=== PATIENT | male | born 1960 | race Caucasian/White ===

== ENCOUNTER → 2017-12-29 | Day surgery (SDC) | payer BC, OTHER ==
[2017-12-28 08:16] VITALS: BMI 26.6
[~2017-12-29] MED LIST: LACTATED RINGERS 1,000 ML IV SCH; LIDOCAINE 1% 20 ML VIAL (10MG/ML) FOR IV START INTRADERMA PRN; LIDOCAINE 1% INJ 10MG/ML (20 ML MDV) ONE; PROPOFOL 10 MG/ML 20 ML VIAL IV ONE
[2017-12-29 08:22] VITALS: RESP 16; TEMP 97.2
--- NOTE | 2017-12-29 09:18 | P.GSHP ---
History of Present Illness H&P Date: 12/29/17 Chief Complaint: Colon cancer screening Patient today for colonoscopy. He has not had one previously. No bowel complaints. No family history of colon cancer. Past Medical History Past Medical History: No Reported History History of Any Multi-Drug Resistant Organisms: None Reported Past Surgical History: Orthopedic Surgery Additional Past Surgical History / Comment(s): rt rotator cuff repair. tendon repair lt arm Past Anesthesia/Blood Transfusion Reactions: No Reported Reaction Smoking Status: Never smoker - Past Family History Mother Family Medical History: No Reported History Medications and Allergies Home Medications Medication Instructions Recorded Confirmed Type Ibuprofen [Motrin] 800 mg PO Q6HR PRN #30 tab 11/20/15 12/26/17 Rx Allergies Allergy/AdvReac Type Severity Reaction Status Date / Time No Known Allergies Allergy Verified 12/26/17 15:31 Surgical - Exam Vital Signs Temp Pulse Resp BP Pulse Ox 97.2 F L 52 L 16 136/77 96 12/29/17 08:17 12/29/17 08:17 12/29/17 08:17 12/29/17 08:17 12/29/17 08:17 Physical exam: General: Well-developed, well-nourished HEENT: Normocephalic, sclerae nonicteric Abdomen: Nontender, nondistended Extremities: No edema Neuro: Alert and oriented Assessment and Plan (1) Colon cancer screening Narrative/Plan: Will proceed with colonoscopy at this time Current Visit: Yes Status: Acute Code(s): Z12.11 - ENCOUNTER FOR SCREENING FOR MALIGNANT NEOPLASM OF COLON SNOMED Code(s): 987461479
--- NOTE | 2017-12-29 09:28 | P.PCN ---
Date of Procedure: 12/29/17 Procedure(s) Performed: PREOPERATIVE DIAGNOSIS: Colon cancer screening POSTOPERATIVE DIAGNOSIS: Diverticulosis PROCEDURE: Colonoscopy ANESTHESIA: MAC SURGEON: Mainor Cody M.D. SPECIMENS: None ENDOSCOPIC PROCEDURE: The patient was placed on the endoscopy table in the left decubitus position. The Olympus colonoscope was inserted into the anus and passed under direct visualization to the base of the cecum. The appendiceal orifice was visualized. From that point the scope was slowly withdrawn inspecting all surfaces carefully. There were no neoplastic inflammatory or polypoid lesions throughout the cecum, ascending, transverse, descending, sigmoid and rectum. There was mild diverticulosis noted in the left colon. Digital rectal examination was normal. The patient was taken to the recovery room in stable condition per anesthesia guidelines. RECOMMENDATIONS: Increase fiber. Follow colonoscopy 10 years
[2017-12-29 09:50] VITALS: BP 121/69; PULSE 57
== END ==
LOC: ORWHC2ENDO 07:51
PROVIDERS: ATTEND Surgery
DX: Z12.11 Encounter for screening for malignant neoplasm of colon (principal); K57.30 Diverticulosis of large intestine without perforation or abscess without bleeding
CPT/HCPCS: J2001; J2704; G0121

== ENCOUNTER → 2018-01-03 | Outpatient (CLI) | payer BC ==
[2018-01-03 09:32] LABS: Basophils % (A) 1 %; Eosinophils # (A) 0.3 k/uL (0-0.7); Eosinophils % (A) 5 %; HCT 43.3 % (39.0-53.0); HGB 14.4 gm/dL (13.0-17.5); Lymphocytes % (A) 32 %; MCHC 33.2 g/dL (31.0-37.0); MCV 90.4 fL (80.0-100.0); Mean Platelet Volume 7.1; Monocytes # (A) 0.5 k/uL (0-1.0); Monocytes % (A) 8 %; Neutrophils # (A) 3.2 k/uL (1.3-7.7); Neutrophils % (A) 50 %; Platelet Count 267 k/uL (150-450); RBC 4.79 m/uL (4.30-5.90); WBC 6.4 k/uL (3.8-10.6)
[2018-01-03 14:52] LABS: T4, Free (Free Thyroxine) 0.74 ng/dL (0.78-2.19)
[2018-01-03 15:06] LABS: Prostate Specific Antigen 1.04 ng/mL (0.00-4.00)
[2018-01-03 15:15] LABS: ALT 46 U/L (21-72); AST 36 U/L (17-59); Albumin 4.6 g/dL (3.5-5.0); Alkaline Phosphatase 67 U/L (38-126); Anion Gap 12 mmol/L; Blood Urea Nitrogen 21 mg/dL (9-20); Calcium 10.1 mg/dL (8.4-10.2); Carbon Dioxide 26 mmol/L (22-30); Chloride 104 mmol/L (98-107); Cholesterol 254 mg/dL (<200); Glucose 106 mg/dL (74-99); HDL Cholesterol 64 mg/dL (40-60); LDL Cholesterol,Calculated 172 mg/dL (0-99); Potassium 4.7 mmol/L (3.5-5.1); Sodium 142 mmol/L (137-145); Total Bilirubin 1.1 mg/dL (0.2-1.3); Total Protein 7.8 g/dL (6.3-8.2); Triglycerides 89 mg/dL (<150)
== END | disposition home or self-care (01) ==
LOC: LABWHC1 08:45
PROVIDERS: ATTEND Family Medicine
DX: Z00.00 Encounter for general adult medical examination without abnormal findings (principal); I10 Essential (primary) hypertension
CPT/HCPCS: 36415; 80053; 80061; 84153; 84439; 84443; 85025; 86803

== ENCOUNTER → 2018-02-05 | Outpatient (CLI) | payer OTHER ==
--- NOTE | 2018-02-05 14:58 | XR ---
EXAMINATION TYPE: XR hand complete RT DATE OF EXAM: 02/05/2018 CLINICAL HISTORY: pain TECHNIQUE: Frontal, lateral and oblique images of the right hand are obtained. COMPARISON: None. FINDINGS: There is no acute fracture/dislocation evident. The joint spaces appear within normal limi ts. The overlying soft tissue appears unremarkable. IMPRESSION: There is no acute fracture or dislocation ICD 10 NO FRACTURE, INITIAL EVALUATION
== END | disposition home or self-care (01) ==
LOC: RADXRMAIN 14:28
PROVIDERS: ATTEND Emergency Medicine
DX: S60.041A Contusion of right ring finger without damage to nail, initial encounter (principal); S60.221A Contusion of right hand, initial encounter

== ENCOUNTER → 2018-02-08 | Outpatient (CLI) | payer OTHER ==
--- NOTE | 2018-02-08 16:14 | XR ---
EXAMINATION TYPE: XR finger RT DATE OF EXAM: 02/08/2018 CLINICAL HISTORY: pain Right third digit. TECHNIQUE: 3 views of the right third digit are submitted. COMPARISON: None FINDINGS: No displaced fracture is seen with certainty. Joint spaces are well-preserved. Correlate for soft tissue injury. IMPRESSION: No acute displaced fracture or dislocation.
== END | disposition home or self-care (01) ==
LOC: RADXRMAIN 15:27
PROVIDERS: ATTEND Emergency Medicine
DX: S60.041D Contusion of right ring finger without damage to nail, subsequent encounter (principal)

== ENCOUNTER 2019-02-13 13:56 | Emergency (ER) | payer BC ==
[2019-02-13] MEDS ORDERED: DEXAMETHASONE SOD PHOSPHATE 10 MG/ML 1 ML VIAL IV STA (14:20)
[2019-02-13] MEDS ORDERED: LORazepam 2 MG/ML INJ IV STA (14:20)
[2019-02-13] MEDS ORDERED: MORPHINE SULFATE 4 MG/ML SYRINGE IVP STA (14:20)
[2019-02-13] MEDS ORDERED: ONDANSETRON 4 MG/2 ML VIAL IVP STA (14:20)
[2019-02-13] MEDS ORDERED: SODIUM CHLORIDE 0.9% 1,000 ML IV STA (14:20)
--- NOTE | 2019-02-13 14:44 | ED ---
Headache HPI - General Chief Complaint: Headache Stated Complaint: Headache, sent by Time Seen by Provider: 02/13/19 14:20 Source: RN notes reviewed, old records reviewed Mode of arrival: ambulatory Limitations: no limitations - History of Present Illness Initial Comments: This is a 58-year-old male the ER for evaluation. Patient sent ER for evaluat ion of severe headache. Patient has CT scan earlier in the day which he states showed tumor. Patient is having severe headache currently. Positive nausea no active vomiting. MD Complaint: headache -: days(s) Onset Description: gradual Location: temporal Severity: severe Severity scale (1-10): 8 Quality: aching, throbbing Consistency: constant Improves With: nothing Worsens With: none Associated Symptoms: nausea Treatments Prior to Arrival: none - Related Data Home Medications Medication Instructions Recorded Confirmed Lisinopril [Prinivil] 5 mg PO DAILY 02/13/19 02/13/19 Allergies Allergy/AdvReac Type Severity Reaction Status Date / Time No Known Allergies Allergy Verified 02/13/19 14:23 Review of Systems ROS Statement: Those systems with pertinent positive or pertinent negative responses have been documented in the HPI. ROS Other: All systems not noted in ROS Statement are negative. Past Medical History Past Medical History: No Reported History History of Any Multi-Drug Resistant Organisms: None Reported Past Surgical History: Orthopedic Surgery Additional Past Surgical History / Comment(s): rt rotator cuff repair. tendon repair lt arm Past Anesthesia/Blood Transfusion Reactions: No Reported Reaction Past Psychological History: Anxiety Smoking Status: Never smoker Past Alcohol Use History: None Reported Past Drug Use History: None Reported - Past Family History Mother Family Medical History: No Reported History General Exam Limitations: no limitations General appearance: alert, in no apparent distress Head exam: Present: atraumatic, normocephalic, normal inspection Eye exam: Present: normal appearance, PERRL, EOMI. Absent: scleral icterus, conjunctival injection, periorbital swelling ENT exam: Present: normal exam, mucous membranes moist Neck exam: Present: normal inspection. Absent: tenderness, meningismus, lymphadenopathy Respiratory exam: Present: normal lung sounds bilaterally. Absent: respiratory distress, wheezes, rales, rhonchi, stridor Cardiovascular Exam: Present: regular rate, normal rhythm, normal heart sounds. Absent: systolic murmur, diastolic murmur, rubs, gallop, clicks GI/Abdominal exam: Present: soft, normal bowel sounds. Absent: distended, tenderness, guarding, rebound, rigid Extremities exam: Present: normal inspection, full ROM, normal capillary refill. Absent: tenderness, pedal edema, joint swelling, calf tenderness Back exam: Present: normal inspection Neurological exam: Present: alert, oriented X3, CN II-XII intact Psychiatric exam: Present: normal affect, normal mood Skin exam: Present: warm, dry, intact, normal color. Absent: rash Course Vital Signs 02/13/19 14:06 Temperature 97.6 F Pulse Rate 58 L Respiratory 18 Rate Blood Pressure 171/84 O2 Sat by Pulse 97 Oximetry - Reevaluation(s) Reevaluation #1: 02/13/19 14:42 Medical records reviewed Reevaluation #2: 02/13/19 14:42 Patient's neurologist regarding symptoms, treatment plan Reevaluation #3: 02/13/19 14:43 Patient family informed of findings, plan from transfer for neurosurgical evaluation Medical Decision Making - Medical Decision Making 58-year-old male the ER for evaluation, patient is today for evaluation of brain tumor mass, patient has significant brain tumor with edema will be given steroids pain control and transferred for neurosurgical evaluation and treatment Disposition Clinical Impression: Brain tumor, Headache Disposition: OTHER INSTITUTION NOT DEFINED Condition: Critical Instructions (If sedation given, give patient instructions): Acute Headache (ED) Is patient prescribed a controlled substance at d/c from ED?: No Referrals: Chetan Abdi MD [Primary Care Provider] - 1-2 days - Out of Hospital Transfer - Req. Specs Out of Hospital Transfer - Requested Specifics: Other Emergency Center ([facility])
[2019-02-13 14:53] LABS: Basophils # (A) 0.1 k/uL (0-0.2); Basophils % (A) 1 %; Eosinophils # (A) 0.2 k/uL (0-0.7); Eosinophils % (A) 2 %; HCT 42.2 % (39.0-53.0); HGB 14.4 gm/dL (13.0-17.5); Lymphocytes # (A) 2.4 k/uL (1.0-4.8); Lymphocytes % (A) 26 %; MCH 30.3 pg (25.0-35.0); MCHC 34.2 g/dL (31.0-37.0); MCV 88.6 fL (80.0-100.0); Mean Platelet Volume 6.9; Monocytes # (A) 0.5 k/uL (0-1.0); Monocytes % (A) 5 %; Neutrophils # (A) 5.8 k/uL (1.3-7.7); Neutrophils % (A) 63 %; Platelet Count 318 k/uL (150-450); RBC 4.77 m/uL (4.30-5.90); RDW 14.3 % (11.5-15.5); WBC 9.3 k/uL (3.8-10.6)
[2019-02-13 14:59] LABS: ALT 53 U/L (21-72); AST 36 U/L (17-59); African American GFR (CKD) >90 (>60 ml/min/1.73 sqM); Albumin 4.8 g/dL (3.5-5.0); Alkaline Phosphatase 69 U/L (38-126); Anion Gap 11 mmol/L; Blood Urea Nitrogen 23 mg/dL (9-20); Carbon Dioxide 24 mmol/L (22-30); Chloride 103 mmol/L (98-107); Creatine Kinase 74 U/L (55-170); Glucose 113 mg/dL (74-99); Magnesium 1.9 mg/dL (1.6-2.3); Potassium 4.5 mmol/L (3.5-5.1); Sodium 138 mmol/L (137-145); Total Protein 8.2 g/dL (6.3-8.2)
[2019-02-13 15:06] LABS: INR 0.9 (<1.2); Partial Thromboplastin Time 24.6 sec (22.0-30.0); Prothrombin Time 9.7 sec (9.0-12.0)
[2019-02-13 15:37] LABS: Appearance,Urine Clear (Clear); Bilirubin,Urine Negative (Negative); Blood,Urine Negative (Negative); Color,Urine Light Yellow; Glucose,Urine (UA) Negative (Negative); Ketones,Urine Negative (Negative); Leukocyte Esterase,Urine Negative (Negative); Nitrite,Urine Negative (Negative); Protein,Urine Negative (Negative); Specific Gravity,Urine 1.013 (1.001-1.035); Urobilinogen,Urine <2.0 mg/dL (<2.0)
[2019-02-13 16:31] VITALS: RESP 16
[2019-02-13 17:58] VITALS: BP 127/72; PULSE 65; TEMP 98.5
== END 2019-02-13 18:27 | disposition other institution (70) ==
LOC: EC 13:56
DX: D49.6 Neoplasm of unspecified behavior of brain (principal); R51 Headache; Z79.899 Other long term (current) drug therapy
CPT/HCPCS: 99284 ×2; 96374 ×2; 96375 ×4; 96361 ×5; 36415; 93005; 80053; 82550; 83605; 83735; 84100; 84484; 85025; 85610; 85730; 81003; 70470; J2060; J2270; J1100; J2405; Q9967

== ENCOUNTER → 2019-02-13 | Outpatient (CLI) | payer BC ==
--- NOTE | 2019-02-13 08:06 | CT ---
EXAMINATION TYPE: CT brain wo/w con DATE OF EXAM: 02/13/2019 COMPARISON: None HISTORY: Headache, confusion, weakness CT DLP: 1963.4mGycm CONTRAST: CT scan of the head is performed without and with IV Contrast, patient injected with 100 mL of Isovue 300. Unenhanced followed by contrast enhanced CT of the brain is submitted for evaluation. Peripheral enhancing mass is noted in the right frontal lobe which measures 5.1 x 4.6 x 5.1 cm. There is an adjacent mass noted within the high right frontal lobe which measures 2.3 x 1.9 cm. There is e xtensive surrounding of vasogenic edema. There is right to left shift of approximately 5.6 mm. There is impending subfalcine herniation. No additional lesions are noted. Bony calvarium is intact. IMPRESSION: 1. 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 Metastatic disease is not excluded. 2. Surrounding vasogenic edema with right to left shift of 5.6 mm and impending subfalcine herniation . A [place] level critical message alert has been initiated for Chetan bAdi MD via the [employer] Critical Results System on 02/13/2019 8:04 AM. This message alert has been sent to Chetan Abdi MD via the preferences provided by the clinician for the receipt of Radiology Critical Findings. [employer] age ID [id number].
== END | disposition home or self-care (01) ==
LOC: RADCTMAIN 06:54
PROVIDERS: ATTEND Family Medicine
DX: G93.9 Disorder of brain, unspecified (principal); R41.82 Altered mental status, unspecified; I10 Essential (primary) hypertension
CPT/HCPCS: 70470; Q9967

== ENCOUNTER 2019-03-22 08:55 | Inpatient (IN) | payer BC ==
[2019-03-22] MEDS: MORPHINE SULFATE 2 MG/ML SYRINGE IVP PRN ×3 (12:54→21:00)
[2019-03-22 14:05] LABS: Basophils # (A) 0.2 k/uL (0-0.2); Basophils % (A) 1 %; Eosinophils % (A) 0 %; HCT 43.1 % (39.0-53.0); HGB 14.4 gm/dL (13.0-17.5); Lymphocytes # (A) 1.5 k/uL (1.0-4.8); Lymphocytes % (A) 8 %; MCHC 33.4 g/dL (31.0-37.0); MCV 89.9 fL (80.0-100.0); Mean Platelet Volume 6.7; Monocytes # (A) 0.7 k/uL (0-1.0); Monocytes % (A) 3 %; Neutrophils # (A) 17.8 k/uL (1.3-7.7); Neutrophils % (A) 86 %; Platelet Count 301 k/uL (150-450); RBC 4.79 m/uL (4.30-5.90); RDW 12.7 % (11.5-15.5); WBC 20.7 k/uL (3.8-10.6)
[2019-03-22 14:15] LABS: ALT 94 U/L (21-72); AST 32 U/L (17-59); African American GFR (CKD) >90 (>60 ml/min/1.73 sqM); Albumin 3.9 g/dL (3.5-5.0); Alkaline Phosphatase 122 U/L (38-126); Anion Gap 14 mmol/L; Blood Urea Nitrogen 23 mg/dL (9-20); Calcium 9.4 mg/dL (8.4-10.2); Carbon Dioxide 21 mmol/L (22-30); Chloride 95 mmol/L (98-107); Glucose 389 mg/dL (74-99); Potassium 4.3 mmol/L (3.5-5.1); Sodium 130 mmol/L (137-145); Total Protein 7.1 g/dL (6.3-8.2)
[2019-03-22] MEDS: DEXAMETHASONE 4 MG TAB PO SCH ×2 (16:14→21:00)
[2019-03-22] MEDS ORDERED: LIDOCAINE VISCOUS 2% 15 ML CUP MUCOUS MEM ONE (17:45)
[2019-03-22 18:09] LABS: Glucose,Whole Blood 282 mg/dL (75-99)
--- NOTE | 2019-03-22 18:57 | P.HPIM ---
History of Present Illness H&P Date: 03/22/19 Chief Complaint: Oral herpes zoster This is 59-year-old male known to the practice who presented via direct admit at our request for oral herpes zoster secondary to immune compromised state from high-dose steroids. Patient underwent craniotomy 1 month ago today for a excis ion of a glioblastoma. Surgery apparently went well the patient was on long- term tapering dose of high-dose steroids and developed oral herpes zoster secondary to immune compromised state his current meds were steroids medication for hypertension patient has sick complains of significant pain to his mouth and the side of the face otherwise appears to be doing fairly well the goal at this time is to aggressively treat the shingles so that patient can be discharged from [facility] Constitutional: Reports as per HPI (Mouth and lip pain specifically on the right side secondary to herpes zoster as a result of high-dose steroid treatment postoperatively for glioblastoma 1 month ago) Ears, nose, mouth and throat: Reports as per HPI (Oral herpes zoster secondary to high-dose steroids, patient underwent craniotomy for large glioblastoma 1 mo nth ago today) Cardiovascular: Reports as per HPI Respiratory: Reports as per HPI Gastrointestinal: Reports as per HPI Genitourinary: Reports as per HPI Musculoskeletal: Reports as per HPI Integumentary: Reports as per HPI Neurological: Reports as per HPI Past Medical History Past Medical History: Cancer, GERD/Reflux, Hypertension Additional Past Medical History / Comment(s): Recent brain surgery for glioblastoma and has gait dysfunction since surgery, herpes simplex one, constipation. History of Any Multi-Drug Resistant Organisms: None Reported Past Surgical History: Orthopedic Surgery Additional Past Surgical History / Comment(s): 02/19/19 craniotomy with brain tumor resection, rt rotator cuff repair, tendon repair lt arm, colonoscopy. Past Anesthesia/Blood Transfusion Reactions: No Reported Reaction Smoking Status: Never smoker - Past Family History Mother Family Medical History: No Reported History Additional Family Medical History / Comment(s): Father is healthy Medications and Allergies Home Medications Medication Instructions Recorded Confirmed Type Lisinopril [Prinivil] 5 mg PO DAILY 02/13/19 03/22/19 History Acetaminophen-Codeine 300-30mg 1 - 2 tab PO Q4H PRN 03/22/19 03/22/19 History [Tylenol w/codeine #3] Dexamethasone 4 mg PO TID 03/22/19 03/22/19 History Omeprazole 20 mg PO DAILY 03/22/19 03/22/19 History levETIRAcetam 500 mg PO BID 03/22/19 03/22/19 History valACYclovir HCL [Valacyclovir] 1,000 mg PO BID 03/22/19 03/22/19 History Allergies Allergy/AdvReac Type Severity Reaction Status Date / Time No Known Allergies Allergy Verified 03/22/19 11:18 Physical Exam Osteopathic Statement: *. No significant issues noted on an osteopathic structural exam other than those noted in the History and Physical/Consult. Vitals: Vital Signs Temp Pulse Resp BP BP Pulse Ox 03/22/19 11:59 97.9 F 61 15 135/69 96 03/22/19 10:11 97.8 F 79 17 178/95 96 Intake and Output 03/22/19 03/22/19 03/22/19 06:59 14:59 22:59 Intake Total 600 Balance 600 Intake: Oral 600 Other: # Voids 1 Weight 73.573 kg General: [Patient awake, alert and oriented times 3. Patient in no acute distress.] Craniotomy scar nicely healed HEENT: [PERRL. EOMI. No pharyngeal erythema or exudate.] Patient has herpes zoster on primarily the right side of the mouth with extensive shingles in the oral cavity Neck: [No adenopathy.] Cardiac: [Heart regular in rate and rhythm. No S3. No S4. No clicks, rubs. No murmur.] Lungs: [Clear to auscultation bilaterally.] Abdomen: [No mass. No organomegaly. Bowel sounds presnt and normoactive in all 4 quadrants.] Extremes: [No edema no cyanosis no claudication normal pulses] : [] Musculoskeletal: [No joint erythema, edema or tenderness.] Skin: [No rash.] Neurologic: [No lateralizing deficits. CN II - XII grossly intact.] Lymphatic: [No adenopathy.] Results CBC & Chem 7: 03/22/19 13:12 03/22/19 13:11 Labs: Abnormal Lab Results - Last 24 Hours (Table) 03/22/19 03/22/19 03/22/19 Range/Units 13:11 13:12 18:07 WBC 20.7 H (3.8-10.6) k/uL Neutrophils # 17.8 H (1.3-7.7) k/uL Sodium 130 L (137-145) mmol/L Chloride 95 L (98-107) mmol/L Carbon Dioxide 21 L (22-30) mmol/L BUN 23 H (9-20) mg/dL Creatinine 0.45 L (0.66-1.25) mg/dL Glucose 389 H (74-99) mg/dL POC Glucose (mg/dL) 282 H (75-99) mg/dL ALT 94 H (21-72) U/L Thrombosis Risk Factor Assmnt - Choose All That Apply Any of the Below Risk Factors Present?: Yes Other Risk Factors: Yes Each Risk Factor Represents 2 Points: Age 61-74 years, Malignancy Other congenital or acquired thrombophilia - If yes, enter type in comment: No Thrombosis Risk Factor Assessment Total Risk Factor Score: 4 Thrombosis Risk Factor Assessment Level: Moderate Risk Assessment and Plan (1) Glioblastoma Current Visit: Yes Status: Acute Code(s): C71.9 - MALIGNANT NEOPLASM OF BRAIN, UNSPECIFIED SNOMED Code(s): 86543278018953 (2) Herpes zoster Current Visit: Yes Status: Acute Code(s): B02.9 - ZOSTER WITHOUT COMPLICATIONS SNOMED Code(s): 4415066 Plan: Patient had craniotomy 1 month ago for glioblastoma High-dose steroids status post craniotomy 1 month Significant herpes zoster currently being treated by Valtrex with little or no improvement Will start IV acyclovir to aggressively treat the oral herpes zoster Also will start patient on "magic mouthwash" to treat oral pain Goal is to have patient be able to eat painlessly by Monday in order for patient to attend first chemotherapy treatments at [facility] Monday morning Time with Patient: Greater than 30
[2019-03-22] MEDS: SODIUM CHLORIDE 0.9% IVPB SCH (19:40)
[2019-03-22] MEDS: ACYCLOVIR SODIUM IVPB SCH (19:40)
[2019-03-22 20:10] LABS: Glucose,Whole Blood 353 mg/dL (75-99)
[2019-03-22] MEDS: levETIRAcetam 500 MG TAB PO SCH (20:59)
[2019-03-22] MEDS ORDERED: INSULIN ASPART (NovoLOG) 100 UNIT/ML VIAL SQ SCH (21:00)
[2019-03-22] MEDS ORDERED: valACYclovir HCL 1,000 MG TABLET PO SCH (21:00)
[2019-03-22] MEDS: INSULIN ASPART (NovoLOG) 100 UNIT/ML VIAL SQ SCH (21:24)
[2019-03-22] MEDS: LISINOPRIL 5 MG TAB PO SCH (21:26)
[2019-03-23] MEDS: MORPHINE SULFATE 2 MG/ML SYRINGE IVP PRN ×2 (04:09→11:01)
[2019-03-23] MEDS: MAG HYDROX/AL HYDROX/SIMETH 30 ML, LIDOCAINE VISCOUS 30 ML, diphenhydrAMINE ELIXIR 75 M... PO PRN ×4 (05:26)
[2019-03-23] MEDS: Acetaminophen-Codeine 300-30mg TAB PO PRN (05:26)
[2019-03-23 06:53] LABS: Glucose,Whole Blood 287 mg/dL (75-99)
[2019-03-23] MEDS: INSULIN ASPART (NovoLOG) 100 UNIT/ML VIAL SQ SCH ×4 (08:01→20:30)
[2019-03-23] MEDS: SODIUM CHLORIDE 0.9% IVPB SCH (08:02)
[2019-03-23] MEDS: LISINOPRIL 5 MG TAB PO SCH (08:02)
[2019-03-23] MEDS: levETIRAcetam 500 MG TAB PO SCH ×2 (08:02→20:30)
[2019-03-23] MEDS: ACYCLOVIR SODIUM IVPB SCH (08:02)
[2019-03-23] MEDS: PANTOPRAZOLE 40 MG TABLET PO SCH (08:02)
[2019-03-23] MEDS: DEXAMETHASONE 4 MG TAB PO SCH ×3 (08:02→22:13)
[2019-03-23] MEDS ORDERED: LISINOPRIL 5 MG TAB PO SCH (09:00)
--- NOTE | 2019-03-23 11:12 | P.PN ---
Subjective Progress Note Date: 03/23/19 Principal diagnosis: Status post craniotomy for glioblastoma 1 month ago, significant herpes zoster involving patient's lips and oral cavity Objectively patient's outer lesions are looking less insidious less erythematous swelling appears to have gone down some since yesterday. Most importantly patient has been eating anything and everything deleon sausage anything, the oral soreness has all but resolved Objective - Vital Signs Vital signs: Vital Signs Temp 98.1 F 03/23/19 04:28 Pulse 60 03/23/19 04:28 Resp 16 03/23/19 04:28 BP 146/76 03/23/19 04:28 Pulse Ox 96 03/23/19 04:28 Intake & Output 03/22/19 03/23/19 03/23/19 18:59 06:59 18:59 Intake Total 600 450 Balance 600 450 Weight 73.573 kg Intake: Intake, IV Titration 100 Amount Acyclovir Sodium 350 mg 100 In Sodium Chloride 0.9% 100 ml @ 100 mls/hr IVPB Q8HR [facility] Rx#:[id number] Oral 600 350 Other: Voiding Method Toilet Toilet Urinal Urinal # Voids 1 1 - Exam General: [Patient awake, alert and oriented times 3. Patient in no acute distress.] Fresh healed craniotomy scar HEENT: [PERRL. EOMI. No pharyngeal erythema or exudate.] Preoperative exudative oral lesions around the left upper and lower lip the oral cavity is less erythematous and less painful today Neck: [No adenopathy.] Cardiac: [Heart regular in rate and rhythm. No S3. No S4. No clicks, rubs. No murmur.] Lungs: [Clear to auscultation bilaterally.] Abdomen: [No mass. No organomegaly. Bowel sounds presnt and normoactive in all 4 quadrants.] Extremes: [No edema no cyanosis no claudication normal pulses] : [] Musculoskeletal: [No joint erythema, edema or tenderness.] Skin: [No rash.] Neurologic: [No lateralizing deficits. CN II - XII grossly intact.] Lymphatic: [No adenopathy.] - Labs CBC & Chem 7: 03/22/19 13:12 03/22/19 13:11 Labs: Abnormal Lab Results - Last 24 Hours (Table) 09/03/22/19 03/22/19 Range/Units 13:11 13:12 18:07 WBC 20.7 H (3.8-10.6) k/uL Neutrophils # 17.8 H (1.3-7.7) k/uL Sodium 130 L (137-145) mmol/L Chloride 95 L (98-107) mmol/L Carbon Dioxide 21 L (22-30) mmol/L BUN 23 H (9-20) mg/dL Creatinine 0.45 L (0.66-1.25) mg/dL Glucose 389 H (74-99) mg/dL POC Glucose (mg/dL) 282 H (75-99) mg/dL ALT 94 H (21-72) U/L 03/22/19 03/23/19 Range/Units 20:08 06:52 WBC (3.8-10.6) k/uL Neutrophils # (1.3-7.7) k/uL Sodium (137-145) mmol/L Chloride (98-107) mmol/L Carbon Dioxide (22-30) mmol/L BUN (9-20) mg/dL Creatinine (0.66-1.25) mg/dL Glucose (74-99) mg/dL POC Glucose (mg/dL) 353 H 287 H (75-99) mg/dL ALT (21-72) U/L Assessment and Plan (1) Glioblastoma Current Visit: Yes Status: Acute Code(s): C71.9 - MALIGNANT NEOPLASM OF BRAIN, UNSPECIFIED SNOMED Code(s): 48929182961256 (2) Herpes zoster Current Visit: Yes Status: Acute Code(s): B02.9 - ZOSTER WITHOUT COMPLICATIONS SNOMED Code(s): 9943768 Plan: Patient had craniotomy 1 month ago for glioblastoma High-dose steroids status, post craniotomy 1 month Significant herpes zoster periorally primarily on the right side of the upper lip and some on the lower lip on the right side This has improved with first dose of acyclovir IV, patient is able to eat today things like deleon and sausage the oral cavity is much less painful Will continue IV acyclovir to aggressively treat the oral herpes zoster Also will start patient on "magic mouthwash" to treat oral pain Patient also getting Magic cups high calorie cold ice creamlike oral supplement Goal is to have patient be able to eat painlessly by Monday in order for patient to attend first chemotherapy treatments at [facility] Monday morning Time with Patient: Greater than 30
[2019-03-23 11:19] LABS: Basophils # (A) 0.2 k/uL (0-0.2); Basophils % (A) 1 %; Eosinophils % (A) 0 %; HCT 38.9 % (39.0-53.0); HGB 13.2 gm/dL (13.0-17.5); Lymphocytes # (A) 1.3 k/uL (1.0-4.8); Lymphocytes % (A) 8 %; MCH 30.2 pg (25.0-35.0); MCHC 33.8 g/dL (31.0-37.0); MCV 89.2 fL (80.0-100.0); Mean Platelet Volume 6.5; Monocytes # (A) 0.7 k/uL (0-1.0); Monocytes % (A) 4 %; Neutrophils # (A) 14.5 k/uL (1.3-7.7); Neutrophils % (A) 86 %; Platelet Count 246 k/uL (150-450); RBC 4.36 m/uL (4.30-5.90); RDW 12.7 % (11.5-15.5); WBC 16.9 k/uL (3.8-10.6)
[2019-03-23 11:27] LABS: ALT 76 U/L (21-72); AST 31 U/L (17-59); African American GFR (CKD) >90 (>60 ml/min/1.73 sqM); Albumin 3.3 g/dL (3.5-5.0); Alkaline Phosphatase 101 U/L (38-126); Anion Gap 9 mmol/L; Blood Urea Nitrogen 18 mg/dL (9-20); Carbon Dioxide 27 mmol/L (22-30); Chloride 96 mmol/L (98-107); Glucose 277 mg/dL (74-99); Potassium 4.3 mmol/L (3.5-5.1); Sodium 132 mmol/L (137-145); Total Bilirubin 0.8 mg/dL (0.2-1.3); Total Protein 6.1 g/dL (6.3-8.2)
[2019-03-23 11:37] LABS: Glucose,Whole Blood 253 mg/dL (75-99)
[2019-03-23 12:56] VITALS: BMI 23.9
[2019-03-23] MEDS: ACYCLOVIR SODIUM 750 MG in SODIUM CHLORIDE 0.9% 250 ML IVPB SCH (16:21)
[2019-03-23 17:11] LABS: Glucose,Whole Blood 358 mg/dL (75-99)
[2019-03-23] MEDS: AMPICILLIN-SULBACTAM 3 GM in SODIUM CHLORIDE 0.9% 100 ML IVPB SCH ×2 (17:25→23:12)
[2019-03-23 20:11] LABS: Glucose,Whole Blood 355 mg/dL (75-99)
[2019-03-23] MEDS: MORPHINE SULFATE 4 MG/ML SYRINGE IVP PRN (20:29)
--- NOTE | 2019-03-23 23:59 | P.CONS ---
History of Present Illness - Reason for Consult Consult date: 03/23/19 extensive herpetic infection of mouth Requesting physician: Levon Espinoza Jr - Chief Complaint painful sores on lips and mouths x 1 week - History of Present Illness Patient is a 59-year-old male with recent diagnosis of glioblastoma multiforme he the patient is status post crainotomy and resection of the tumor and has been on high-dose steroids patient recently developed about a week ago sores on his lips and the mouth that has progressively got worse patient did have burning pain associated with those lesion with intensity almost 7-8 out of 10 no radiation with sores in the mouth and difficulty swallowing denies any fever patient said he was started on oral Valtrex few days ago he is not sure about the dose however did not have any improvement subsequently the patient has been admitted directly to the hospital for extensive herpetic infection of his mouth patient patient was started on IV acyclovir and infectious disease was consulted for further recommendation regarding antiviral and antibiotic therapy, patient is currently afebrile however he did have elevated white count Review of Systems CONSTITUTIONAL: Positive for weakness. denies Fever EYES: No complaint. ENT as per HPI RESPIRATORY: No complaint. CARDIOVASCULAR: No complaint. GENITOURINARY: No complaint. GASTROINTESTINAL: No complaint. MUSCULOSKELETAL: No complaint. INTEGUMENTARY: No complaint. PSYCHOLOGICAL: No complaint. ENDOCRINE: No complaint. NEUROLOGIC: No complaint. Past Medical History Past Medical History: Cancer, GERD/Reflux, Hypertension Additional Past Medical History / Comment(s): Recent brain surgery for glioblastoma and has gait dysfunction since surgery, herpes simplex one, constipation. History of Any Multi-Drug Resistant Organisms: None Reported Past Surgical History: Orthopedic Surgery Additional Past Surgical History / Comment(s): 02/19/19 craniotomy with brain tumor resection, rt rotator cuff repair, tendon repair lt arm, colonoscopy. Past Anesthesia/Blood Transfusion Reactions: No Reported Reaction Smoking Status: Never smoker - Past Family History Mother Family Medical History: No Reported History Additional Family Medical History / Comment(s): Father is healthy Medications and Allergies Home Medications Medication Instructions Recorded Confirmed Type Lisinopril [Prinivil] 5 mg PO DAILY 02/13/19 03/22/19 History Acetaminophen-Codeine 300-30mg 1 - 2 tab PO Q4H PRN 03/22/19 03/22/19 History [Tylenol w/codeine #3] Dexamethasone 4 mg PO TID 03/22/19 03/22/19 History Omeprazole 20 mg PO DAILY 03/22/19 03/22/19 History levETIRAcetam 500 mg PO BID 03/22/19 03/22/19 History valACYclovir HCL [Valacyclovir] 1,000 mg PO BID 03/22/19 03/22/19 History Allergies Allergy/AdvReac Type Severity Reaction Status Date / Time No Known Allergies Allergy Verified 03/22/19 11:18 Physical Exam Vitals: Vital Signs Temp Pulse Resp BP Pulse Ox 03/23/19 11:47 98.0 F 58 L 18 133/78 97 03/23/19 04:28 98.1 F 60 16 146/76 96 03/23/19 00:00 58 L 18 03/22/19 22:17 140/88 03/22/19 21:00 98.2 F 55 L 16 174/96 94 L Intake and Output 03/22/19 03/23/19 03/23/19 22:59 06:59 14:59 Intake Total 450 Balance 450 Intake: Intake, IV Titration 100 Amount Acyclovir Sodium 350 mg 100 In Sodium Chloride 0.9% 100 ml @ 100 mls/hr IVPB Q8HR [facility] Rx#:[id number] Oral 350 Other: Voiding Method Toilet Toilet Urinal Urinal # Voids 1 1 GENERAL DESCRIPTION: Middle-aged male lying in bed, no distress. No tachypnea or accessory muscle of respiration use. HEENT: Shows Pallor , no scleral icterus , extensive herpetic lesions to the right side of mouth , upper and lower lips No pharyngeal erythema or thrush NECK: Trachea central, no thyromegaly. LUNGS: Unlabored breathing. Clear to auscultation anteriorly. No wheeze or crackle. HEART: S1, S2, regular rate and rhythm. No loud murmur ABDOMEN: Soft, no tenderness , guarding or rigidity, no organomegaly EXTREMITIES: No edema of feet. SKIN: No rash, no masses palpable. NEUROLOGICAL: The patient is awake, alert, oriented x3, mood and affect normal. Results CBC & Chem 7: 03/23/19 10:46 03/23/19 10:46 Labs: Abnormal Lab Results - Last 24 Hours (Table) 03/22/19 03/22/19 03/22/19 Range/Units 13:11 13:12 18:07 WBC 20.7 H (3.8-10.6) k/uL Hct (39.0-53.0) % Neutrophils # 17.8 H (1.3-7.7) k/uL Sodium 130 L (137-145) mmol/L Chloride 95 L (98-107) mmol/L Carbon Dioxide 21 L (22-30) mmol/L BUN 23 H (9-20) mg/dL Creatinine 0.45 L (0.66-1.25) mg/dL Glucose 389 H (74-99) mg/dL POC Glucose (mg/dL) 282 H (75-99) mg/dL ALT 94 H (21-72) U/L Total Protein (6.3-8.2) g/dL Albumin (3.5-5.0) g/dL 03/22/19 03/23/19 03/23/19 Range/Units 20:08 06:52 10:46 WBC 16.9 H (3.8-10.6) k/uL Hct 38.9 L (39.0-53.0) % Neutrophils # 14.5 H (1.3-7.7) k/uL Sodium (137-145) mmol/L Chloride (98-107) mmol/L Carbon Dioxide (22-30) mmol/L BUN (9-20) mg/dL Creatinine (0.66-1.25) mg/dL Glucose (74-99) mg/dL POC Glucose (mg/dL) 353 H 287 H (75-99) mg/dL ALT (21-72) U/L Total Protein (6.3-8.2) g/dL Albumin (3.5-5.0) g/dL 03/23/19 03/23/19 Range/Units 10:46 11:35 WBC (3.8-10.6) k/uL Hct (39.0-53.0) % Neutrophils # (1.3-7.7) k/uL Sodium 132 L (137-145) mmol/L Chloride 96 L (98-107) mmol/L Carbon Dioxide (22-30) mmol/L BUN (9-20) mg/dL Creatinine 0.42 L (0.66-1.25) mg/dL Glucose 277 H (74-99) mg/dL POC Glucose (mg/dL) 253 H (75-99) mg/dL ALT 76 H (21-72) U/L Total Protein 6.1 L (6.3-8.2) g/dL Albumin 3.3 L (3.5-5.0) g/dL Assessment and Plan Assessment: 1-Patient with extensive herpes labialis with concern for possible secondary cellulitis in this patient who did have extensive swelling of the right side of his face besides an antiviral will need to treat the patient with IV antibiotics to cover for the oral ya. 2-patient with recent diagnosis of glioblastoma multiforme and exposure of high-dose steroids/immunocompromise state Plan: 1-acyclovir 10 mg/kg every 8 hours dose has been adjusted up to 750 mg every 8 hour while monitoring his kidney function closely 2-Unasyn 3 g every 6 hours We will follow on clinical condition and cultures to further adjust medication if needed Thank you for this consultation we will follow the patient along with you
[2019-03-24] MEDS: ACYCLOVIR SODIUM 750 MG in SODIUM CHLORIDE 0.9% 250 ML IVPB SCH ×3 (00:22→16:35)
[2019-03-24] MEDS: MORPHINE SULFATE 4 MG/ML SYRINGE IVP PRN (01:48)
[2019-03-24] MEDS: AMPICILLIN-SULBACTAM 3 GM in SODIUM CHLORIDE 0.9% 100 ML IVPB SCH ×3 (05:48→18:18)
[2019-03-24 06:48] LABS: Glucose,Whole Blood 296 mg/dL (75-99)
[2019-03-24 08:06] LABS: Basophils # (A) 0.1 k/uL (0-0.2); Basophils % (A) 1 %; Eosinophils % (A) 0 %; HCT 37.2 % (39.0-53.0); HGB 13.2 gm/dL (13.0-17.5); Lymphocytes # (A) 1.5 k/uL (1.0-4.8); Lymphocytes % (A) 11 %; MCH 30.4 pg (25.0-35.0); MCHC 35.4 g/dL (31.0-37.0); MCV 86.1 fL (80.0-100.0); Mean Platelet Volume 5.3; Monocytes # (A) 0.6 k/uL (0-1.0); Monocytes % (A) 5 %; Neutrophils # (A) 10.7 k/uL (1.3-7.7); Neutrophils % (A) 81 %; Platelet Count 262 k/uL (150-450); RBC 4.32 m/uL (4.30-5.90); RDW 12.6 % (11.5-15.5); WBC 13.2 k/uL (3.8-10.6)
[2019-03-24] MEDS: MORPHINE SULFATE 2 MG/ML SYRINGE IVP PRN (08:35)
[2019-03-24] MEDS: LISINOPRIL 5 MG TAB PO SCH (08:35)
[2019-03-24] MEDS: PANTOPRAZOLE 40 MG TABLET PO SCH (08:35)
[2019-03-24] MEDS: levETIRAcetam 500 MG TAB PO SCH ×2 (08:35→21:17)
[2019-03-24] MEDS: DEXAMETHASONE 4 MG TAB PO SCH ×3 (08:35→21:17)
[2019-03-24] MEDS: INSULIN ASPART (NovoLOG) 100 UNIT/ML VIAL SQ SCH ×4 (08:36→21:18)
--- NOTE | 2019-03-24 09:04 | P.PN ---
Subjective Progress Note Date: 03/24/19 Principal diagnosis: Status post craniotomy for glioblastoma 1 month ago, significant herpes zoster involving patient's lips and oral cavity Objectively patient's outer lesions are looking less insidious less erythematous swelling appears to have gone down some since yesterday. Most importantly patient has been eating anything and everything deleon sausage anything, the oral soreness has all but resolved 03/24/2019 Patient is definitely tolerating diet mild cellulitis along with oral herpetic lesions starting to clear drying up patient significantly improved will continue IV acyclovir and IV antibiotics at least through tomorrow reevaluate at which time consider discharging patient home Objective - Vital Signs Vital signs: Vital Signs Temp 97.6 F 03/24/19 05:00 Pulse 47 L 03/24/19 05:00 Resp 19 03/24/19 05:00 BP 124/79 03/24/19 05:00 Pulse Ox 98 03/24/19 05:00 Intake & Output 03/23/19 03/24/19 03/24/19 18:59 06:59 18:59 Intake Total 100 350 Balance 100 350 Weight 73.573 kg Intake: Intake, IV Titration 100 350 Amount Acyclovir Sodium 350 mg 100 In Sodium Chloride 0.9% 100 ml @ 100 mls/hr IVPB Q8HR [facility] Rx#:[id number] Acyclovir Sodium 750 mg 250 In Sodium Chloride 0.9% 250 ml @ 265 mls/hr IVPB Q8HR [facility] Rx#:[id number] Ampicillin-Sulbactam 3 gm 100 In Sodium Chloride 0.9% 100 ml @ 200 mls/hr IVPB Q6HR [facility] Rx#:[id number] Other: Voiding Method Toilet Toilet Urinal Urinal # Voids 1 - Exam General: [Patient awake, alert and oriented times 3. Patient in no acute distress.] Fresh healed craniotomy scar HEENT: [PERRL. EOMI. No pharyngeal erythema or exudate.] Preoperative exudative oral lesions around the left upper and lower lip the oral cavity is less erythematous and less painful today Neck: [No adenopathy.] Cardiac: [Heart regular in rate and rhythm. No S3. No S4. No clicks, rubs. No murmur.] Lungs: [Clear to auscultation bilaterally.] Abdomen: [No mass. No organomegaly. Bowel sounds presnt and normoactive in all 4 quadrants.] Extremes: [No edema no cyanosis no claudication normal pulses] : [] Musculoskeletal: [No joint erythema, edema or tenderness.] Skin: [No rash.] Neurologic: [No lateralizing deficits. CN II - XII grossly intact.] Lymphatic: [No adenopathy.] - Labs CBC & Chem 7: 03/24/19 07:31 03/23/19 10:46 Labs: Abnormal Lab Results - Last 24 Hours (Table) 03/23/19 03/23/19 03/23/19 Range/Units 10:46 10:46 11:35 WBC 16.9 H (3.8-10.6) k/uL Hct 38.9 L (39.0-53.0) % Neutrophils # 14.5 H (1.3-7.7) k/uL Sodium 132 L (137-145) mmol/L Chloride 96 L (98-107) mmol/L Creatinine 0.42 L (0.66-1.25) mg/dL Glucose 277 H (74-99) mg/dL POC Glucose (mg/dL) 253 H (75-99) mg/dL ALT 76 H (21-72) U/L Total Protein 6.1 L (6.3-8.2) g/dL Albumin 3.3 L (3.5-5.0) g/dL 03/23/19 03/23/19 03/24/19 Range/Units 17:09 20:10 06:45 WBC (3.8-10.6) k/uL Hct (39.0-53.0) % Neutrophils # (1.3-7.7) k/uL Sodium (137-145) mmol/L Chloride (98-107) mmol/L Creatinine (0.66-1.25) mg/dL Glucose (74-99) mg/dL POC Glucose (mg/dL) 358 H 355 H 296 H (75-99) mg/dL ALT (21-72) U/L Total Protein (6.3-8.2) g/dL Albumin (3.5-5.0) g/dL 03/24/19 Range/Units 07:31 WBC 13.2 H (3.8-10.6) k/uL Hct 37.2 L (39.0-53.0) % Neutrophils # 10.7 H (1.3-7.7) k/uL Sodium (137-145) mmol/L Chloride (98-107) mmol/L Creatinine (0.66-1.25) mg/dL Glucose (74-99) mg/dL POC Glucose (mg/dL) (75-99) mg/dL ALT (21-72) U/L Total Protein (6.3-8.2) g/dL Albumin (3.5-5.0) g/dL Assessment and Plan (1) Glioblastoma Current Visit: Yes Status: Acute Code(s): C71.9 - MALIGNANT NEOPLASM OF BRAIN, UNSPECIFIED SNOMED Code(s): 77441759874176 (2) Herpes zoster Current Visit: Yes Status: Acute Code(s): B02.9 - ZOSTER WITHOUT COMPLICATIONS SNOMED Code(s): 8242794 Plan: Patient had craniotomy 1 month ago for glioblastoma High-dose steroids status, post craniotomy 1 month Significant herpes zoster periorally primarily on the right side of the upper lip and some on the lower lip on the right side This has improved with first dose of acyclovir IV, patient is able to eat today things like deleon and sausage the oral cavity is much less painful Will continue IV acyclovir to aggressively treat the oral herpes zoster Also will start patient on "magic mouthwash" to treat oral pain Patient also getting Magic cups high calorie cold ice creamlike oral supplement ID also started IV Unasyn to empirically cover secondary bacterial infection around the perioral area significant reduction in white count noted We'll reevaluate and assess in the morning and consider discharging patient so he might keep his appointment Goal is to have patient be able to eat painlessly by Monday in order for patient to attend first chemotherapy treatments at [facility] Monday morning Time with Patient: Greater than 30
[2019-03-24 11:32] LABS: Glucose,Whole Blood 254 mg/dL (75-99)
[2019-03-24] MEDS: MAG HYDROX/AL HYDROX/SIMETH 30 ML, LIDOCAINE VISCOUS 30 ML, diphenhydrAMINE ELIXIR 75 M... PO PRN ×4 (12:12)
[2019-03-24] MEDS: Acetaminophen-Codeine 300-30mg TAB PO PRN (15:10)
[2019-03-24 17:05] LABS: Glucose,Whole Blood 304 mg/dL (75-99)
[2019-03-24 20:06] LABS: Glucose,Whole Blood 344 mg/dL (75-99)
[2019-03-24] MEDS ORDERED: MELATONIN 3 MG TABLET PO PRN (20:06)
[2019-03-25] MEDS: AMPICILLIN-SULBACTAM 3 GM in SODIUM CHLORIDE 0.9% 100 ML IVPB SCH ×3 (00:13→11:40)
[2019-03-25] MEDS: ACYCLOVIR SODIUM 750 MG in SODIUM CHLORIDE 0.9% 250 ML IVPB SCH ×3 (00:46→15:11)
[2019-03-25] MEDS: LISINOPRIL 5 MG TAB PO SCH (06:01)
[2019-03-25 07:03] LABS: Glucose,Whole Blood 384 mg/dL (75-99)
[2019-03-25] MEDS: INSULIN ASPART (NovoLOG) 100 UNIT/ML VIAL SQ SCH ×2 (07:17→12:27)
--- NOTE | 2019-03-25 07:18 | PN ---
PROGRESS NOTE DATE OF SERVICE: 03/24/2019 REASON FOR FOLLOW UP: Herpes labialis and question of secondary cellulitis. INTERVAL HISTORY: The patient is currently afebrile. Patient is feeling slightly better today. Swelling and redness of the right side of the angle of the mouth is slightly decreased. Denies any chest pain, shortness of breath or cough. No nausea, no vomiting. No abdominal pain. No diarrhea. PHYSICAL EXAMINATION: Blood pressure is 137/80 with a pulse of 51, temperature 98.5. He is 97% on room air. General description is a middle-aged male up in the bed in no distress. HEENT: Examination right side of the angle of the mouth swelling and lesion has slightly decreased in intensity. LUNGS: Unlabored breathing, decreased breath sounds at the base. HEART: S1, S2. Regular rate and rhythm. ABDOMEN: Soft, no tenderness. LABS: White count is down to 13.2. DIAGNOSTIC IMPRESSION AND PLAN: Patient with extensive herpes labilais with a question of possible secondary bacteria cellulitis. Currently covered with IV Acyclovir and Unasyn to continue for at least another 24 hours before transitioning him to oral. Monitor his clinical course closely. Continue supportive care. MMODL / IJN: [id number] /
[2019-03-25] MEDS: levETIRAcetam 500 MG TAB PO SCH (07:59)
[2019-03-25] MEDS: PANTOPRAZOLE 40 MG TABLET PO SCH (07:59)
[2019-03-25] MEDS: DEXAMETHASONE 4 MG TAB PO SCH ×2 (07:59→15:11)
[2019-03-25] MEDS: MAG HYDROX/AL HYDROX/SIMETH 30 ML, LIDOCAINE VISCOUS 30 ML, diphenhydrAMINE ELIXIR 75 M... PO PRN ×8 (08:54→16:42)
[2019-03-25 11:37] LABS: Glucose,Whole Blood 263 mg/dL (75-99)
[2019-03-25 11:52] VITALS: BP 128/75; PULSE 58; RESP 17; TEMP 96.9
[2019-03-25] MEDS: MORPHINE SULFATE 4 MG/ML SYRINGE IVP PRN (12:26)
--- NOTE | 2019-03-25 14:30 | PN ---
PROGRESS NOTE DATE OF SERVICE: 03/25/2019 REASON FOR FOLLOWUP: Extensive hypoesthesia with possible secondary cellulitis. INTERVAL HISTORY: The patient is currently afebrile. Patient also has improved. He is able to swallow and has been insisting on going home. No chest pain, shortness of breath, no abdominal pain, no diarrhea. PHYSICAL EXAMINATION: Blood pressure 120/75 with a pulse of 50, temperature of 96.8, he is 97% on room air. General description is a middle-aged male up in the room in no distress. HEENT: Examination right side of the wound is slightly decreased. Swelling has slightly decreased, no drainage. LUNGS: Unlabored breathing, clear to auscultation anteriorly. HEART: S1, S2. Regular rate and rhythm. ABDOMEN: Soft, no tenderness. LABS: No new labs have been obtained today. DIAGNOSTIC IMPRESSION AND PLAN: Diagnostic impression plan patient with extensive herpes labialis in this patient with possible secondary cellulitis. Plan is to switch him over to oral Valtrex 1 g 3 times a day along with oral Augmentin for about 7-10 days with close outpatient followup. Prescription has been sent to the pharmacy. MMODL / IJN: [id number] /
--- NOTE | 2019-03-25 16:50 | P.DS ---
Providers Date of admission: 03/22/19 09:56 Expected date of discharge: 03/25/19 Attending physician: Levon Espinoza Consults: 03/22/19 17:22 Consult Physician Routine Consulting Provider: Jordan Reinoso Consult Reason/Comments: glioblastoma/hsv Do you want consulting provider notified?: Already Contacted 03/23/19 10:36 Consult Physician Routine Consulting Provider: Hector Gutierrez Consult Reason/Comments: Oral herpes zoster, secondary to steroid use, glioblastoma Do you want consulting provider notified?: Yes 03/24/19 09:22 Consult Physician Routine Consulting Provider: Adolfo Fernandez Consult Reason/Comments: Glioblastoma Do you want consulting provider notified?: Yes Primary care physician: Levon Espinoza - Discharge Diagnosis(es) (1) Herpes zoster Current Visit: Yes Status: Acute (2) Intractable pain Current Visit: Yes Status: Acute (3) H/O craniotomy Current Visit: Yes Status: Acute (4) Chemotherapy adverse reaction Current Visit: Yes Status: Acute (5) H/O head and neck radiation Current Visit: Yes Status: Acute (6) Glioblastoma Current Visit: Yes Status: Acute Hospital Course: This is a pleasant 59-year-old white male well-known to my partner. He was diagnosed glioblastoma 1 month ago. He underwent a craniotomy for excision of tumor. He presented here on March 23 for significant pain and edema and erythema to his right Rd border. He was diagnosed with a severe case of herpes labialis. This placed on IV antibiotic, IV acyclovir. This pain was very difficult to control he was admitted for these treatments. After several days his symptoms were much better under control. Infectious disease is seen him and which him to orals, and he was cleared for discharge. Plan - Discharge Summary Discharge Rx Participant: No New Discharge Prescriptions: New Amoxicillin/Potassium Clav [Augmentin 875-125 Tablet] 1 tab PO Q12HR #20 tab valACYclovir HCL [Valtrex] 1,000 mg PO Q8HR #30 tab Melatonin 3 mg PO HS PRN tablet PRN Reason: Insomnia Nystatin 100,000 Unit/ml Susp [Mycostatin Oral Susp] 1,000,000 unit PO TID #42 cup Lisinopril [Zestril] 5 mg PO DAILY #90 tab Continue Acetaminophen-Codeine 300-30mg [Tylenol w/codeine #3] 1 - 2 tab PO Q4H PRN PRN Reason: Pain levETIRAcetam 500 mg PO BID Dexamethasone 4 mg PO TID Omeprazole 20 mg PO DAILY Discontinued Lisinopril [Prinivil] 5 mg PO DAILY valACYclovir HCL [Valacyclovir] 1,000 mg PO BID Discharge Medication List Acetaminophen-Codeine 300-30mg [Tylenol w/codeine #3] 1 - 2 tab PO Q4H PRN 03/22/19 [History] Dexamethasone 4 mg PO TID 03/22/19 [History] Omeprazole 20 mg PO DAILY 03/22/19 [History] levETIRAcetam 500 mg PO BID 03/22/19 [History] Amoxicillin/Potassium Clav [Augmentin 875-125 Tablet] 1 tab PO Q12HR #20 tab 03/25/19 [Rx] Lisinopril [Zestril] 5 mg PO DAILY #90 tab 03/25/19 [Rx] Melatonin 3 mg PO HS PRN tablet 03/25/19 [Rx] Nystatin 100,000 Unit/ml Susp [Mycostatin Oral Susp] 1,000,000 unit PO TID #42 cup 03/25/19 [Rx] valACYclovir HCL [Valtrex] 1,000 mg PO Q8HR #30 tab 03/25/19 [Rx] Follow up Appointment(s)/Referral(s): [facility], [NON-STAFF] - Hector Gutierrez MD [STAFF PHYSICIAN] - 1 Week Levon Espinoza Jr, DO [Primary Care Provider] - 1 Week Patient Instructions/Handouts: Amoxicillin/Clavulanate Potassium (By mouth), Valacyclovir (By mouth), Shingles (DC), Glioblastoma (DC) Activity/Diet/Wound Care/Special Instructions: call Renata in am to advise hold on treatments until MD clears you to start treatments again Discharge Disposition: HOME SELF-CARE
--- NOTE | 2019-03-25 23:29 | P.CONS ---
History of Present Illness - Reason for Consult Consult date: 03/25/19 shingles, glioblastoma multiforme - History of Present Illness Mr Dawkins is a 59 yr old white male, quite healthy and active at baseline. The patient had presented with about a 3 week history of left upper extremity weakness and is slowly progressive. In addition he was having difficulty with confusion at work and problems with following instructions and logistics. He also developed generalized headache. He was therefore referred for CT scan by systemic a physician which revealed a large right frontal mass with surrounding vasogenic edema and midline shift. He was sent in to the emergency room at [facility] and then transferred to [facility] on 02/14/19. He had an MRI of the brain revealing a 4.7 x 4.7 x 5.9 cm frontal enhancing mass with significant edema and [address] chest abdomen and pelvis were negative. The patient then had surgery on 02/19/19. Operative notes were reviewed and it appears from them that a gross total resection was achieved. Final pathology was consistent with glioblastoma multiforme . MRI showed cavitary changes in the right frontal lobe with mixed-signal focus measuring 4.6 x 3.6 cm. At the time of surgery the patient was also noted to have a cystic component of his tumor with pathology on the fluid that was drained also positive. The patient was seen by radiation oncology, and referred for further evaluation and recommendations.he was seen in the office on 03/01/19 and concurrent chemoradiatn for protocol withas recommended He has had some improvement a left upper extremity strength since surgery. Confusion and cognition are also improved. The patient was seen in the office last week as he had developed some mouth sores. He was treated for mucositis, but developed progressive symptoms. Lesions subsequently involved the right upper lip, and in the right side of the face and scalp. He had some blistering and crusting, along with generalized redness. Due to the above, causing increasing pain, he came into the emergency room. He was diagnosed with shingles and admitted. He was seen by ID and felt to have a superimposed bacterial cellulitis. He was therefore treated with both IV antibiotics and antiviral, with slow improvement in symptoms Consult was therefore placed for further evaluation and recommendations Review of Systems Constitutional: Reports fatigue, Reports weakness Eyes: denies blurred vision, denies pain Ears: deny: decreased hearing, ear discharge, earache, tinnitus Ears, nose, mouth and throat: Reports as per HPI, Reports mouth pain Cardiovascular: Reports decreased exercise tolerance Respiratory: Reports dyspnea Gastrointestinal: Denies abdominal pain, Denies diarrhea, Denies nausea, Denies vomiting Genitourinary: Reports as per HPI Musculoskeletal: Reports as per HPI, Reports muscle weakness Integumentary: Reports as per HPI, Reports lesions, Reports rash Neurological: Reports as per HPI, Reports change in mentation, Reports change in speech, Reports motor disturbance, Reports weakness Psychiatric: Denies anxiety, Denies depression Endocrine: Reports fatigue Hematologic/Lymphatic: Reports as per HPI Past Medical History Past Medical History: Cancer, GERD/Reflux, Hypertension Additional Past Medical History / Comment(s): Recent brain surgery for glioblastoma and has gait dysfunction since surgery, herpes simplex one, constipation. History of Any Multi-Drug Resistant Organisms: None Reported Past Surgical History: Orthopedic Surgery Additional Past Surgical History / Comment(s): 02/19/19 craniotomy with brain tumor resection, rt rotator cuff repair, tendon repair lt arm, colonoscopy. Past Anesthesia/Blood Transfusion Reactions: No Reported Reaction Smoking Status: Never smoker - Past Family History Mother Family Medical History: No Reported History Additional Family Medical History / Comment(s): Father is healthy Medications and Allergies Home Medications Medication Instructions Recorded Confirmed Type Acetaminophen-Codeine 300-30mg 1 - 2 tab PO Q4H PRN 03/22/19 03/22/19 History [Tylenol w/codeine #3] Dexamethasone 4 mg PO TID 03/22/19 03/22/19 History Omeprazole 20 mg PO DAILY 03/22/19 03/22/19 History levETIRAcetam 500 mg PO BID 03/22/19 03/22/19 History Amoxicillin/Potassium Clav 1 tab PO Q12HR #20 tab 03/25/19 Rx [Augmentin 875-125 Tablet] Lisinopril [Zestril] 5 mg PO DAILY #90 tab 03/25/19 Rx Melatonin 3 mg PO HS PRN tablet 03/25/19 Rx Nystatin 100,000 Unit/ml Susp 1,000,000 unit PO TID #42 cup 03/25/19 Rx [Mycostatin Oral Susp] valACYclovir HCL [Valtrex] 1,000 mg PO Q8HR #30 tab 03/25/19 Rx Allergies Allergy/AdvReac Type Severity Reaction Status Date / Time No Known Allergies Allergy Verified 03/22/19 11:18 Physical Exam Vitals: Vital Signs Temp Pulse Resp BP Pulse Ox 03/25/19 16:00 58 L 17 03/25/19 11:51 96.9 F L 58 L 17 128/75 97 03/25/19 04:59 97.9 F 96 16 172/98 96 Intake and Output 03/25/19 03/25/19 03/26/19 14:59 22:59 06:59 Intake Total 1400 Balance 1400 Intake: Intake, IV Titration 250 Amount Acyclovir Sodium 750 mg 250 In Sodium Chloride 0.9% 250 ml @ 265 mls/hr IVPB Q8HR [facility] Rx#:[id number] Oral 1150 Other: Voiding Method Toilet Toilet Urinal Urinal # Voids 4 4 - Constitutional General appearance: no acute distress - EENT Crusted lesions with erythema and swelling involving right upper lip at the mucocutaneous junction and extending into the mouth. Eyes: EOMI, PERRLA ENT: hearing grossly normal - Neck Neck: no lymphadenopathy Thyroid: bilateral: normal size - Respiratory Respiratory: bilateral: CTA - Cardiovascular Rhythm: regular Heart sounds: normal: S1, S2 - Gastrointestinal General gastrointestinal: normal bowel sounds, soft - Integumentary extensive erythema involving the right side of face, with papules, warmth and tenderness. No active ulcers, pustules, or crusted lesions external face Integumentary: rash (involving right side of face and ing into the oral cavity.) - Neurologic Neurologic: CNII-XII intact, focal deficits (left upper extremity mildly weak) - Musculoskeletal Musculoskeletal: generalized weakness, left sided weakness - Psychiatric Psychiatric: A&O x's 3, appropriate affect Results CBC & Chem 7: 03/24/19 07:31 03/23/19 10:46 Labs: Abnormal Lab Results - Last 24 Hours (Table) 03/25/19 03/25/19 Range/Units 07:01 11:36 POC Glucose (mg/dL) 384 H 263 H (75-99) mg/dL Assessment and Plan (1) Herpes zoster Narrative/Plan: This is a new occurrence. This is likely due to immunocompromise state from regular steroid use. There is concern also for superimposed bacterial edith lulitis. The patient has been treated with IV antiviral and Unasyn, with improvement Therefore to the admitting service and ID for continued treatment Status: Acute Code(s): B02.9 - ZOSTER WITHOUT COMPLICATIONS SNOMED Code(s): 2350729 (2) Glioblastoma Narrative/Plan: Diagnostic and therapeutic circumstances as described. The patient is to start concurrent chemoradiation per protocol. However chemotherapy will currently need to be held, until his current condition has been adequately treated. He was therefore obtain clearance from ID prior to starting chemotherapy, as otherwise it could compromise immunity further and cause relapse/dissemination of shingles. As chemoradiation have to be given concurrently, his treatment will be on hold until acute condition is felt to have resolved sufficiently. radiation oncology will be informed Status: Acute Code(s): C71.9 - MALIGNANT NEOPLASM OF BRAIN, UNSPECIFIED SNOMED Code(s): 41286574653401
== END 2019-03-25 17:10 | disposition home health service (06) | DRG 158 ==
LOC: 3NMEDONC 09:56
PROVIDERS: ADMIT Family Medicine; ATTEND Family Medicine
DX: B00.2 Herpesviral gingivostomatitis and pharyngotonsillitis (principal); C71.9 Malignant neoplasm of brain, unspecified; L03.211 Cellulitis of face; D81.89 Other combined immunodeficiencies; I10 Essential (primary) hypertension; K21.9 Gastro-esophageal reflux disease without esophagitis; B96.89 Other specified bacterial agents as the cause of diseases classified elsewhere; R26.9 Unspecified abnormalities of gait and mobility; Z79.899 Other long term (current) drug therapy; Z79.52 Long term (current) use of systemic steroids
CPT/HCPCS: 80053; 85025

== ENCOUNTER 2019-04-07 17:07 | Inpatient (IN) | payer BC ==
[2019-04-07 17:12] LABS: Glucose,Whole Blood >600 mg/dL (75-99)
[2019-04-07] MEDS ORDERED: SODIUM CHLORIDE 0.9% 500 ML 500 ML IV STA (17:26)
[2019-04-07] MEDS ORDERED: INSULIN REGULAR BOLUS (FROM DRIP BAG) IV ONE (17:26)
[2019-04-07] MEDS ORDERED: SODIUM CHLORIDE 0.9% 1,000 ML IV ONE (17:26)
[2019-04-07] MEDS ORDERED: INSULIN REGULAR 100 UNIT in SODIUM CHLORIDE 0.9% 100 ML IV SCH (17:30)
--- NOTE | 2019-04-07 17:37 | ED ---
General Adult HPI - General Chief complaint: Weakness Stated complaint: Hyperglycemia Time Seen by Provider: 04/07/19 17:07 Source: patient, family, EMS, RN notes reviewed Mode of arrival: EMS Limitations: altered mental status - History of Present Illness Initial comments: Patient is a pleasant 59-year-old male presenting to the emergency department wi th fatigue and generalized weakness. Symptoms started a couple of days ago. Majority of history is from and EMS. Patient does have known brain tumor with surgical excision done around 6 weeks ago. They're considering radiation and chemotherapy. The past few days patient has been fatigued and generally weak and slight confusion. Patient has polyuria and polydipsia. Patient has had some problems with recent hospital admission with blood sugars however otherwise no diagnosis of diabetes. Patient is on Decadron secondary to brain tumor. estimates patient has lost a proximal he 45 pounds over the past few months. No abdominal pain. No vomiting. - Related Data Home Medications Medication Instructions Recorded Confirmed Dexamethasone 4 mg PO TID@0100,0900,1700 03/22/19 04/07/19 levETIRAcetam 500 mg PO BID@0900,2100 03/22/19 04/07/19 Fluconazole [Diflucan] 100 mg PO DAILY@1200 04/07/19 04/07/19 Lisinopril [Zestril] 5 mg PO DAILY@1200 04/07/19 04/07/19 Allergies Allergy/AdvReac Type Severity Reaction Status Date / Time No Known Allergies Allergy Verified 04/07/19 18:02 Review of Systems ROS Statement: Those systems with pertinent positive or pertinent negative responses have been documented in the HPI. ROS Other: All systems not noted in ROS Statement are negative. Constitutional: Denies: fever Eyes: Denies: eye pain ENT: Denies: ear pain Respiratory: Denies: cough Cardiovascular: Denies: chest pain Endocrine: Reports: fatigue, polydipsia, polyuria Gastrointestinal: Denies: abdominal pain, nausea, vomiting Genitourinary: Denies: dysuria Musculoskeletal: Denies: back pain Skin: Reports: rash (Right side of face from recent shingles improving) Neurological: Reports: confusion. Denies: headache, weakness Past Medical History Past Medical History: Cancer, GERD/Reflux, Hypertension Additional Past Medical History / Comment(s): Recent brain surgery for glioblastoma and has gait dysfunction since surgery, herpes simplex one, constipation. History of Any Multi-Drug Resistant Organisms: None Reported Past Surgical History: Orthopedic Surgery Additional Past Surgical History / Comment(s): 02/19/19 craniotomy with brain tumor resection, rt rotator cuff repair, tendon repair lt arm, colonoscopy. Past Anesthesia/Blood Transfusion Reactions: No Reported Reaction Past Psychological History: Anxiety, Depression Smoking Status: Never smoker Past Alcohol Use History: None Reported Past Drug Use History: None Reported - Past Family History Mother Family Medical History: No Reported History Additional Family Medical History / Comment(s): Father is healthy General Exam Limitations: altered mental status General appearance: alert, in no apparent distress Head exam: Present: other (Anterior parietal incision clean and dry and intact) Eye exam: Present: normal appearance, PERRL ENT exam: Present: mucous membranes dry Neck exam: Present: normal inspection Respiratory exam: Present: normal lung sounds bilaterally Cardiovascular Exam: Present: regular rate, normal rhythm GI/Abdominal exam: Present: soft. Absent: tenderness Extremities exam: Present: normal inspection Neurological exam: Present: alert. Absent: motor sensory deficit Expanded Patient oriented to: Present: person, place. Absent: time Speech: Present: fluid speech Cranial nerves: EOM's Intact: Normal Motor strength exam: RUE: 5, LUE: 5, RLE: 5, LLE: 5 Psychiatric exam: Present: normal affect, normal mood Skin exam: Present: other (Mild erythema right side of mouth/face consistent with healing shingles is reported.) Course Vital Signs 04/07/19 04/07/19 04/07/19 17:11 17:33 18:46 Temperature 98.2 F Pulse Rate 109 H 90 96 Respiratory 16 18 18 Rate Blood Pressure 130/102 146/99 134/107 O2 Sat by Pulse 94 L 96 97 Oximetry - Reevaluation(s) Reevaluation #1: 04/07/19 18:31 Patient reevaluated and resting comfortably in bed. Patient and family updated on results and plan. Case discussed in detail with Dr. Parry, covering for Dr. Thomas who will consult. Dr. Abdi has been paged for admission of this patient. 04/07/19 19:15 Case was discussed in detail with Dr. Vick, who will admit and is earlier this patient. He does recommend oral acyclovir 400 mg maintenance dose. EKG Findings - EKG Comments: EKG Findings:: Normal sinus rhythm 92. [place] 146. QRS 84. QT 352. QTC 435. Normal axis. Left atrial enlargement. Normal QRS. No acute ST change. Medical Decision Making - Lab Data Result diagrams: 04/07/19 17:30 04/07/19 17:30 Lab Results 04/07/19 04/07/19 04/07/19 Range/Units 17:10 17:30 17:30 WBC 18.1 H (3.8-10.6) k/uL RBC 4.96 (4.30-5.90) m/uL Hgb 15.4 (13.0-17.5) gm/dL Hct 45.7 (39.0-53.0) % MCV 92.1 D (80.0-100.0) fL MCH 31.0 (25.0-35.0) pg MCHC 33.6 (31.0-37.0) g/dL RDW 13.6 (11.5-15.5) % Plt Count 342 (150-450) k/uL Neutrophils % 81 % Lymphocytes % 9 % Monocytes % 6 % Eosinophils % 0 % Basophils % 2 % Neutrophils # 14.7 H (1.3-7.7) k/uL Lymphocytes # 1.6 (1.0-4.8) k/uL Monocytes # 1.1 H (0-1.0) k/uL Eosinophils # 0.0 (0-0.7) k/uL Basophils # 0.3 H (0-0.2) k/uL Sodium 129 L (137-145) mmol/L Potassium 5.5 H (3.5-5.1) mmol/L Chloride 92 L (98-107) mmol/L Carbon Dioxide 21 L (22-30) mmol/L Anion Gap 16 mmol/L BUN 36 H (9-20) mg/dL Creatinine 0.45 L (0.66-1.25) mg/dL Est GFR (CKD-EPI)AfAm >90 (>60 ml/min/1.73 sqM) Est GFR (CKD-EPI)NonAf >90 (>60 ml/min/1.73 sqM) Glucose 957 H* (74-99) mg/dL POC Glucose (mg/dL) >600 H (75-99) mg/dL POC Glu Tube Sizer Operator ID Tawny Bowden Calcium 10.7 H (8.4-10.2) mg/dL Total Bilirubin 1.2 (0.2-1.3) mg/dL AST 28 (17-59) U/L ALT 115 H (21-72) U/L Alkaline Phosphatase 114 (38-126) U/L Total Protein 7.3 (6.3-8.2) g/dL Albumin 4.3 (3.5-5.0) g/dL Urine Color Urine Appearance (Clear) Urine pH (5.0-8.0) Ur Specific [place] (1.001-1.035) Urine Protein (Negative) Urine Glucose (UA) (Negative) Urine Ketones (Negative) Urine Blood (Negative) Urine Nitrite (Negative) Urine Bilirubin (Negative) Urine Urobilinogen (<2.0) mg/dL Ur Leukocyte Esterase (Negative) Acetone, Qual (Negative) 04/07/19 04/07/19 04/07/19 Range/Units 17:30 17:30 18:11 WBC (3.8-10.6) k/uL RBC (4.30-5.90) m/uL Hgb (13.0-17.5) gm/dL Hct (39.0-53.0) % MCV (80.0-100.0) fL MCH (25.0-35.0) pg MCHC (31.0-37.0) g/dL RDW (11.5-15.5) % Plt Count (150-450) k/uL Neutrophils % % Lymphocytes % % Monocytes % % Eosinophils % % Basophils % % Neutrophils # (1.3-7.7) k/uL Lymphocytes # (1.0-4.8) k/uL Monocytes # (0-1.0) k/uL Eosinophils # (0-0.7) k/uL Basophils # (0-0.2) k/uL Sodium (137-145) mmol/L Potassium (3.5-5.1) mmol/L Chloride (98-107) mmol/L Carbon Dioxide (22-30) mmol/L Anion Gap mmol/L BUN (9-20) mg/dL Creatinine (0.66-1.25) mg/dL Est GFR (CKD-EPI)AfAm (>60 ml/min/1.73 sqM) Est GFR (CKD-EPI)NonAf (>60 ml/min/1.73 sqM) Glucose (74-99) mg/dL POC Glucose (mg/dL) >600 H (75-99) mg/dL POC Glu Tube Sizer Operator ID Morena Gonzalez Calcium (8.4-10.2) mg/dL Total Bilirubin (0.2-1.3) mg/dL AST (17-59) U/L ALT (21-72) U/L Alkaline Phosphatase (38-126) U/L Total Protein (6.3-8.2) g/dL Albumin (3.5-5.0) g/dL Urine Color Light Yellow Urine Appearance Clear (Clear) Urine pH 5.5 (5.0-8.0) Ur Specific [place] 1.033 (1.001-1.035) Urine Protein Trace H (Negative) Urine Glucose (UA) 4+ H (Negative) Urine Ketones Negative (Negative) Urine Blood Negative (Negative) Urine Nitrite Negative (Negative) Urine Bilirubin Negative (Negative) Urine Urobilinogen <2.0 (<2.0) mg/dL Ur Leukocyte Esterase Negative (Negative) Acetone, Qual Positive (Negative) 04/07/19 Range/Units 18:48 WBC (3.8-10.6) k/uL RBC (4.30-5.90) m/uL Hgb (13.0-17.5) gm/dL Hct (39.0-53.0) % MCV (80.0-100.0) fL MCH (25.0-35.0) pg MCHC (31.0-37.0) g/dL RDW (11.5-15.5) % Plt Count (150-450) k/uL Neutrophils % % Lymphocytes % % Monocytes % % Eosinophils % % Basophils % % Neutrophils # (1.3-7.7) k/uL Lymphocytes # (1.0-4.8) k/uL Monocytes # (0-1.0) k/uL Eosinophils # (0-0.7) k/uL Basophils # (0-0.2) k/uL Sodium (137-145) mmol/L Potassium (3.5-5.1) mmol/L Chloride (98-107) mmol/L Carbon Dioxide (22-30) mmol/L Anion Gap mmol/L BUN (9-20) mg/dL Creatinine (0.66-1.25) mg/dL Est GFR (CKD-EPI)AfAm (>60 ml/min/1.73 sqM) Est GFR (CKD-EPI)NonAf (>60 ml/min/1.73 sqM) Glucose (74-99) mg/dL POC Glucose (mg/dL) >600 H (75-99) mg/dL POC Glu Tube Sizer Operator ID Morena Gonzalez Calcium (8.4-10.2) mg/dL Total Bilirubin (0.2-1.3) mg/dL AST (17-59) U/L ALT (21-72) U/L Alkaline Phosphatase (38-126) U/L Total Protein (6.3-8.2) g/dL Albumin (3.5-5.0) g/dL Urine Color Urine Appearance (Clear) Urine pH (5.0-8.0) Ur Specific [place] (1.001-1.035) Urine Protein (Negative) Urine Glucose (UA) (Negative) Urine Ketones (Negative) Urine Blood (Negative) Urine Nitrite (Negative) Urine Bilirubin (Negative) Urine Urobilinogen (<2.0) mg/dL Ur Leukocyte Esterase (Negative) Acetone, Qual (Negative) - Radiology Data Radiology results: image reviewed (Chest x-ray shows no acute process) Critical Care Time Critical Care Time: Yes Total Critical Care Time: 32 Disposition Clinical Impression: Diabetic ketoacidosis Disposition: ADMITTED IP TO THIS HOSP Is patient prescribed a controlled substance at d/c from ED?: No Referrals: Chetan Abdi MD [Primary Care Provider] - 1-2 days Decision Time: 18:32
[2019-04-07 17:39] LABS: Appearance,Urine Clear (Clear); Bilirubin,Urine Negative (Negative); Blood,Urine Negative (Negative); Color,Urine Light Yellow; Glucose,Urine (UA) 4+ (Negative); Ketones,Urine Negative (Negative); Leukocyte Esterase,Urine Negative (Negative); Nitrite,Urine Negative (Negative); PH, Urine 5.5 (5.0-8.0); Protein,Urine Trace (Negative); Specific Gravity,Urine 1.033 (1.001-1.035); Urobilinogen,Urine <2.0 mg/dL (<2.0)
[2019-04-07 17:41] LABS: Basophils # (A) 0.3 k/uL (0-0.2); Basophils % (A) 2 %; Eosinophils % (A) 0 %; HCT 45.7 % (39.0-53.0); HGB 15.4 gm/dL (13.0-17.5); Lymphocytes # (A) 1.6 k/uL (1.0-4.8); Lymphocytes % (A) 9 %; MCHC 33.6 g/dL (31.0-37.0); Monocytes # (A) 1.1 k/uL (0-1.0); Monocytes % (A) 6 %; Neutrophils # (A) 14.7 k/uL (1.3-7.7); Neutrophils % (A) 81 %; Platelet Count 342 k/uL (150-450); RBC 4.96 m/uL (4.30-5.90); RDW 13.6 % (11.5-15.5); WBC 18.1 k/uL (3.8-10.6)
[2019-04-07 17:42] LABS: MCV 92.1 fL (80.0-100.0)
[2019-04-07 17:48] LABS: ALT 115 U/L (21-72); AST 28 U/L (17-59); African American GFR (CKD) >90 (>60 ml/min/1.73 sqM); Albumin 4.3 g/dL (3.5-5.0); Alkaline Phosphatase 114 U/L (38-126); Anion Gap 16 mmol/L; Blood Urea Nitrogen 36 mg/dL (9-20); Calcium 10.7 mg/dL (8.4-10.2); Carbon Dioxide 21 mmol/L (22-30); Chloride 92 mmol/L (98-107); Potassium 5.5 mmol/L (3.5-5.1); Sodium 129 mmol/L (137-145); Total Bilirubin 1.2 mg/dL (0.2-1.3); Total Protein 7.3 g/dL (6.3-8.2)
[2019-04-07 17:56] LABS: Glucose 957 mg/dL (74-99)
[2019-04-07 18:14] LABS: Glucose,Whole Blood >600 mg/dL (75-99)
--- NOTE | 2019-04-07 18:15 | XR ---
EXAMINATION TYPE: XR chest 2V DATE OF EXAM: 04/07/2019 COMPARISON: EXAMINATION TYPE: XR chest 2V DATE OF EXAM: 04/07/2019 CLINICAL HISTORY: Weakness TECHNIQUE: Frontal and lateral views of the chest are obtained. COMPARISON: None FINDINGS: There is no focal air space opacity, pleural effusion, or pneumothorax seen. The cardiac silhouette size is within normal limits. The osseous structures are intact. IMPRESSION: No acute cardiopulmonary process.
[2019-04-07 19:09] LABS: Glucose,Whole Blood >600 mg/dL (75-99)
[2019-04-07 19:40] LABS: Glucose,Whole Blood 494 mg/dL (75-99)
[2019-04-07] MEDS: SODIUM CHLORIDE 0.9% 1,000 ML IV SCH ×2 (20:07→20:28)
[2019-04-07 20:19] LABS: Glucose,Whole Blood >600 mg/dL (75-99)
[2019-04-07 21:08] LABS: African American GFR (CKD) >90 (>60 ml/min/1.73 sqM); Anion Gap 10 mmol/L; Blood Urea Nitrogen 29 mg/dL (9-20); Carbon Dioxide 27 mmol/L (22-30); Chloride 101 mmol/L (98-107); Glucose 388 mg/dL (74-99); Phosphorus 3.5 mg/dL (2.5-4.5); Potassium 4.1 mmol/L (3.5-5.1); Sodium 138 mmol/L (137-145)
[2019-04-07 21:19] LABS: Glucose,Whole Blood 383 mg/dL (75-99)
[2019-04-07] MEDS: levETIRAcetam 500 MG TAB PO SCH (21:35)
[2019-04-07] MEDS: ACYCLOVIR 200 MG CAP PO SCH (21:38)
[2019-04-07 22:30] LABS: Glucose,Whole Blood 319 mg/dL (75-99)
[2019-04-07 23:24] LABS: Glucose,Whole Blood 206 mg/dL (75-99)
[2019-04-07] MEDS: D5-0.45% NACL WITH KCL 20MEQ/L 1,000 ML IV SCH (23:50)
[2019-04-08 00:18] LABS: African American GFR (CKD) >90 (>60 ml/min/1.73 sqM); Anion Gap 6 mmol/L; Blood Urea Nitrogen 29 mg/dL (9-20); Carbon Dioxide 29 mmol/L (22-30); Chloride 104 mmol/L (98-107); Glucose 168 mg/dL (74-99); Phosphorus 3.7 mg/dL (2.5-4.5); Potassium 3.8 mmol/L (3.5-5.1); Sodium 139 mmol/L (137-145)
[2019-04-08 00:24] LABS: Glucose,Whole Blood 232 mg/dL (75-99)
[2019-04-08] MEDS: DEXAMETHASONE 4 MG TAB PO SCH ×3 (00:28→17:50)
[2019-04-08] MEDS: INSULIN ASPART (NovoLOG) 100 UNIT/ML VIAL SQ SCH ×7 (00:28→22:09)
[2019-04-08 06:31] LABS: Glucose,Whole Blood 220 mg/dL (75-99)
[2019-04-08] MEDS: D5-0.45% NACL WITH KCL 20MEQ/L 1,000 ML IV SCH (06:31)
[2019-04-08] MEDS ORDERED: INSULIN ASPART (NovoLOG) 100 UNIT/ML VIAL SQ SCH (07:30)
[2019-04-08] MEDS: ACYCLOVIR 200 MG CAP PO SCH ×2 (08:53→20:32)
[2019-04-08] MEDS: levETIRAcetam 500 MG TAB PO SCH ×2 (08:55→20:32)
[2019-04-08] MEDS: INSULIN DETEMIR (LEVEMIR) 100 UNIT/ML SYR SQ SCH (10:47)
[2019-04-08 11:50] LABS: Glucose,Whole Blood 231 mg/dL (75-99)
[2019-04-08] MEDS ORDERED: FLUCONAZOLE 100 MG TAB PO SCH (12:00)
[2019-04-08] MEDS ORDERED: LISINOPRIL 5 MG TAB PO SCH (12:00)
[2019-04-08 13:39] VITALS: BMI 20.7
[2019-04-08 17:00] LABS: Glucose,Whole Blood 293 mg/dL (75-99)
--- NOTE | 2019-04-08 17:08 | P.HPIM ---
History of Present Illness H&P Date: 04/08/19 Chief Complaint: Increasing fatigue and generalized weakness This is 59-year-old gentleman history of cancer, recent brain surgery 6 weeks ago for glioblastoma on Decadron, gastroesophageal reflux disease, hypertension, recent herpes simplex virus, gait dysfunction, anxiety, depression and multiple other medical issues, essentially clear with mild confusion, worsening fatigue and generalized weakness 2 days. Per patient had polyuria, polydipsia. Weight loss greater than 45 pounds over the last few months. Blood sugars on arrival were 957, positive serum acetone. Afebrile, and ABC 18.1, sodium 129, potassium 5.5, BUN 36, creatinine 0.45, CO2 21, ALT 115. Chest x-ray reporting non acute. EKG normal sinus rhythm possible left atrial enlargement, possible i nferior infarct, age undetermined. Denies nausea, vomiting. Denies abdominal pain.Denies chest pain, palpitations or shortness of breath. Review of Systems ROS Statement: Those systems with pertinent positive or pertinent negative responses have been documented in the HPI. ROS Other: All systems not noted in ROS Statement are negative. Past Medical History Past Medical History: Cancer, GERD/Reflux, Hypertension Additional Past Medical History / Comment(s): Recent brain surgery for glioblastoma and has gait dysfunction since surgery, herpes simplex one. History of Any Multi-Drug Resistant Organisms: None Reported Past Surgical History: Orthopedic Surgery Additional Past Surgical History / Comment(s): 02/19/19 craniotomy with brain tumor resection, rt rotator cuff repair, tendon repair lt arm, colonoscopy. Past Anesthesia/Blood Transfusion Reactions: No Reported Reaction Past Psychological History: Anxiety, Depression Additional Psychological History / Comment(s): Pt resides with his spouse. He uses a cane to ambulate. He has not driven since brain surgery/spouse drives. He is receiving home care thru [facility]. Smoking Status: Never smoker Past Alcohol Use History: None Reported Past Drug Use History: None Reported - Past Family History Mother Family Medical History: No Reported History Additional Family Medical History / Comment(s): Father is healthy Medications and Allergies Home Medications Medication Instructions Recorded Confirmed Type Dexamethasone 4 mg PO TID@0100,0900,1700 03/22/19 04/07/19 History levETIRAcetam 500 mg PO BID@0900,2100 03/22/19 04/07/19 History Fluconazole [Diflucan] 100 mg PO DAILY@1200 04/07/19 04/07/19 History Lisinopril [Zestril] 5 mg PO DAILY@1200 04/07/19 04/07/19 History Allergies Allergy/AdvReac Type Severity Reaction Status Date / Time No Known Allergies Allergy Verified 04/07/19 18:02 Physical Exam Vitals: Vital Signs Temp Pulse Pulse Resp BP BP Pulse Ox 04/08/19 16:00 96.1 F L 71 16 124/86 97 04/08/19 12:20 97.3 F L 91 16 135/81 98 04/08/19 08:15 97.3 F L 91 16 135/81 98 04/08/19 04:00 97.5 F L 79 16 130/70 98 04/07/19 23:05 97.6 F 67 15 117/72 98 04/07/19 20:22 81 16 132/79 95 04/07/19 19:57 98.2 F 76 18 126/86 98 04/07/19 19:21 88 18 122/90 98 04/07/19 18:46 96 18 134/107 97 04/07/19 17:33 90 18 146/99 96 04/07/19 17:11 98.2 F 109 H 16 130/102 94 L Intake and Output 04/08/19 04/08/19 04/08/19 06:59 14:59 22:59 Intake Total 960 402 Output Total 250 Balance 710 402 Intake: Oral 960 402 Output: Urine 250 Other: Voiding Method Urinal Urinal Urinal # Voids 1 1 # Bowel Movements 1 1 Weight 63.503 kg PHYSICAL EXAM: VITAL SIGNS: As above GENERAL: Sitting up in bed, no acute HEENT: Anterior parietal incision clean dry and intact.Conjunctivae normal. eyes normal. Oral mucosa moist NECK: No JVD. No thyroid enlargement. No LNs CARDIOVASCULAR: S1, S2 regular.. No murmur RESPIRATION: Breath sounds diminished in the bases. No rhonchi or crackles. No bronchial breathing. ABDOMEN: Soft, nontender . No guarding. no masses palpable. No ascites, No hepatosplenomegaly.Bowel sounds heard. LEGS: No edema. no swelling PSYCHIATRY: Alert and oriented X3, mood and affect normal. NERVOUS SYSTEM: Cranial N 2-12 grossly normal. Moves all 4 limbs. Diffuse weakness No focal deficits. Strength and sensation grossly intact.. Skin: right of face/mouth with mild erythema-recent shingles, no rash Lymphatic system. No LN neck axilla or groin. Results CBC & Chem 7: 04/07/19 17:30 04/07/19 23:56 Labs: Abnormal Lab Results - Last 24 Hours (Table) 04/07/19 04/07/19 04/07/19 Range/Units 17:10 17:30 17:30 WBC 18.1 H (3.8-10.6) k/uL Neutrophils # 14.7 H (1.3-7.7) k/uL Monocytes # 1.1 H (0-1.0) k/uL Basophils # 0.3 H (0-0.2) k/uL Sodium 129 L (137-145) mmol/L Potassium 5.5 H (3.5-5.1) mmol/L Chloride 92 L (98-107) mmol/L Carbon Dioxide 21 L (22-30) mmol/L BUN 36 H (9-20) mg/dL Creatinine 0.45 L (0.66-1.25) mg/dL Glucose 957 H* (74-99) mg/dL POC Glucose (mg/dL) >600 H (75-99) mg/dL Calcium 10.7 H (8.4-10.2) mg/dL ALT 115 H (21-72) U/L Urine Protein (Negative) Urine Glucose (UA) (Negative) 04/07/19 04/07/19 04/07/19 Range/Units 17:30 18:11 18:48 WBC (3.8-10.6) k/uL Neutrophils # (1.3-7.7) k/uL Monocytes # (0-1.0) k/uL Basophils # (0-0.2) k/uL Sodium (137-145) mmol/L Potassium (3.5-5.1) mmol/L Chloride (98-107) mmol/L Carbon Dioxide (22-30) mmol/L BUN (9-20) mg/dL Creatinine (0.66-1.25) mg/dL Glucose (74-99) mg/dL POC Glucose (mg/dL) >600 H >600 H (75-99) mg/dL Calcium (8.4-10.2) mg/dL ALT (21-72) U/L Urine Protein Trace H (Negative) Urine Glucose (UA) 4+ H (Negative) 04/07/19 04/07/19 04/07/19 Range/Units 19:20 20:17 20:25 WBC (3.8-10.6) k/uL Neutrophils # (1.3-7.7) k/uL Monocytes # (0-1.0) k/uL Basophils # (0-0.2) k/uL Sodium (137-145) mmol/L Potassium (3.5-5.1) mmol/L Chloride (98-107) mmol/L Carbon Dioxide (22-30) mmol/L BUN 29 H (9-20) mg/dL Creatinine 0.44 L (0.66-1.25) mg/dL Glucose 388 H (74-99) mg/dL POC Glucose (mg/dL) 494 H >600 H (75-99) mg/dL Calcium (8.4-10.2) mg/dL ALT (21-72) U/L Urine Protein (Negative) Urine Glucose (UA) (Negative) 04/07/19 04/07/19 04/07/19 Range/Units 21:18 22:18 23:22 WBC (3.8-10.6) k/uL Neutrophils # (1.3-7.7) k/uL Monocytes # (0-1.0) k/uL Basophils # (0-0.2) k/uL Sodium (137-145) mmol/L Potassium (3.5-5.1) mmol/L Chloride (98-107) mmol/L Carbon Dioxide (22-30) mmol/L BUN (9-20) mg/dL Creatinine (0.66-1.25) mg/dL Glucose (74-99) mg/dL POC Glucose (mg/dL) 383 H 319 H 206 H (75-99) mg/dL Calcium (8.4-10.2) mg/dL ALT (21-72) U/L Urine Protein (Negative) Urine Glucose (UA) (Negative) 04/07/19 04/08/19 04/08/19 Range/Units 23:56 00:22 06:29 WBC (3.8-10.6) k/uL Neutrophils # (1.3-7.7) k/uL Monocytes # (0-1.0) k/uL Basophils # (0-0.2) k/uL Sodium (137-145) mmol/L Potassium (3.5-5.1) mmol/L Chloride (98-107) mmol/L Carbon Dioxide (22-30) mmol/L BUN 29 H (9-20) mg/dL Creatinine 0.47 L (0.66-1.25) mg/dL Glucose 168 H (74-99) mg/dL POC Glucose (mg/dL) 232 H 220 H (75-99) mg/dL Calcium (8.4-10.2) mg/dL ALT (21-72) U/L Urine Protein (Negative) Urine Glucose (UA) (Negative) 04/08/19 Range/Units 11:48 WBC (3.8-10.6) k/uL Neutrophils # (1.3-7.7) k/uL Monocytes # (0-1.0) k/uL Basophils # (0-0.2) k/uL Sodium (137-145) mmol/L Potassium (3.5-5.1) mmol/L Chloride (98-107) mmol/L Carbon Dioxide (22-30) mmol/L BUN (9-20) mg/dL Creatinine (0.66-1.25) mg/dL Glucose (74-99) mg/dL POC Glucose (mg/dL) 231 H (75-99) mg/dL Calcium (8.4-10.2) mg/dL ALT (21-72) U/L Urine Protein (Negative) Urine Glucose (UA) (Negative) Thrombosis Risk Factor Assmnt - Choose All That Apply Each Factor Represents 1 point: Medical pt on bed rest Each Risk Factor Represents 2 Points: Age 61-74 years, Malignancy Other congenital or acquired thrombophilia - If yes, enter type in comment: No Thrombosis Risk Factor Assessment Total Risk Factor Score: 5 Thrombosis Risk Factor Assessment Level: High Risk Assessment and Plan Assessment: -Acute DKA in a patient with glioblastoma on Decadron -Possible diabetes mellitus, hemoglobin A1c pending -Recent herpes simplex virus -Gastroesophageal reflux disease -Recent brain tumor resection -Hypertension -Anxiety, depression Plan: Continue on current medication regime ,monitoring and symptomatic treatment. Levemir, pre-meal insulin added to med regime. Hemoglobin A1c pending. Patient will need glucometer and diabetic supplies for discharge .Oncology consulted with recommendations pending. tobacco educator consulted. Family teaching regarding patient will be going home on long-acting insulin and premeal insulin. Discharge planning in progress for tomorrow. All meds have been reviewed and resumed, accordingly. The impression and plan of care has been dictated as directed. : I performed a history and examination of this patient, discussed the same with the dictator. I agree with the dictator's note ,documented as a scribe. Any additional findings or plans will be noted. Time taken 35 minutes
[2019-04-08 20:41] LABS: Glucose,Whole Blood 162 mg/dL (75-99)
[2019-04-09] MEDS ORDERED: D5-0.45% NACL WITH KCL 20MEQ/L 1,000 ML IV SCH (00:15)
[2019-04-09] MEDS: DEXAMETHASONE 4 MG TAB PO SCH ×2 (02:25→08:27)
[2019-04-09 03:41] LABS: Glucose,Whole Blood 249 mg/dL (75-99)
[2019-04-09 06:03] LABS: Basophils # (A) 0.4 k/uL (0-0.2); Basophils % (A) 3 %; Eosinophils % (A) 0 %; HCT 39.7 % (39.0-53.0); HGB 13.1 gm/dL (13.0-17.5); Lymphocytes # (A) 1.3 k/uL (1.0-4.8); Lymphocytes % (A) 10 %; MCH 29.6 pg (25.0-35.0); MCHC 33.1 g/dL (31.0-37.0); MCV 89.5 fL (80.0-100.0); Mean Platelet Volume 6.3; Monocytes # (A) 0.6 k/uL (0-1.0); Monocytes % (A) 5 %; Neutrophils # (A) 10.7 k/uL (1.3-7.7); Neutrophils % (A) 81 %; Platelet Count 240 k/uL (150-450); RBC 4.44 m/uL (4.30-5.90); WBC 13.2 k/uL (3.8-10.6)
[2019-04-09 06:10] LABS: African American GFR (CKD) >90 (>60 ml/min/1.73 sqM); Anion Gap 6 mmol/L; Blood Urea Nitrogen 18 mg/dL (9-20); Calcium 9.7 mg/dL (8.4-10.2); Carbon Dioxide 27 mmol/L (22-30); Chloride 95 mmol/L (98-107); Glucose 259 mg/dL (74-99); Potassium 4.2 mmol/L (3.5-5.1); Sodium 128 mmol/L (137-145)
[2019-04-09 06:37] LABS: Glucose,Whole Blood 251 mg/dL (75-99)
[2019-04-09] MEDS: INSULIN DETEMIR (LEVEMIR) 100 UNIT/ML SYR SQ SCH (07:04)
[2019-04-09] MEDS: INSULIN ASPART (NovoLOG) 100 UNIT/ML VIAL SQ SCH ×2 (07:05)
[2019-04-09] MEDS: levETIRAcetam 500 MG TAB PO SCH (08:27)
[2019-04-09] MEDS: ACYCLOVIR 200 MG CAP PO SCH (08:27)
[2019-04-09 08:49] VITALS: BP 115/79; PULSE 82; RESP 18; TEMP 97.6
[2019-04-09] MEDS ORDERED: INSULIN DETEMIR (LEVEMIR) 100 UNIT/ML SYR SQ ONE (09:00)
--- NOTE | 2019-04-09 10:32 | P.DS ---
Providers Date of admission: 04/07/19 19:17 Expected date of discharge: 04/09/19 Attending physician: Levon Espinoza Consults: 04/08/19 17:02 Consult Physician Routine Consulting Provider: Jordan Reinoso Consult Reason/Comments: Glioblastoma on Decadron, DKA Do you want consulting provider notified?: Yes Primary care physician: Chetan Abdi Hospital Course: Final Diagnoses: -Acute DKA in a patient with glioblastoma on Decadron, resolved -Possible diabetes mellitus, hemoglobin A1c pending; results to be faxed to PCP's office -Recent herpes simplex virus -Gastroesophageal reflux disease -Recent brain tumor resection -Hypertension -Anxiety, depression Hospital course:This is 59-year-old gentleman history of cancer, recent brain surgery 6 weeks ago for glioblastoma on Decadron, gastroesophageal reflux disease, hypertension, recent herpes simplex virus, gait dysfunction, anxiety, depression and multiple other medical issues, essentially clear with mild confusion, worsening fatigue and generalized weakness 2 days. Per patient had polyuria, polydipsia. Weight loss greater than 45 pounds over the last few months. Blood sugars on arrival were 957, positive serum acetone. Afebrile, and ABC 18.1, sodium 129, potassium 5.5, BUN 36, creatinine 0.45, CO2 21, ALT 115. Chest x-ray reporting non acute. EKG normal sinus rhythm possible left atrial enlargement, possible inferior infarct, age undetermined. Denies nausea, vomiting. Denies abdominal pain.Denies chest pain, palpitations or shortness of breath. CO2 on admission 21, up to 27. Anion gap 16 on admission, down to 6. Blood sugars improved-in the low 200s, gap closed, CO2 27. Significant clinical improvement. Patient is being discharged home today in a stable condition with guarded prognosis. Patient has been instructed to follow up at Dr. Abdi's office this afternoon for samples of Soliqua or Xultophy. EXAM: GENERAL: Alert and oriented X 3, No acute distress. CARDIOVASCULAR: S1, S2 regular.. No murmur RESPIRATION: Breath sounds diminished in the bases. No rhonchi or crackles. ABDOMEN: Soft, nontender . No guarding. no masses palpable. Bowel sounds heard. NERVOUS SYSTEM:No focal deficits. The impression and plan of care has been dictated as directed. : I performed a history and examination of this patient, discussed the same with the dictator. I agree with the dictator's note ,documented as a scribe. Any additional findings or plans will be noted. Patient Condition at Discharge: Stable Plan - Discharge Summary Discharge Rx Participant: No New Discharge Prescriptions: New Insulin Glargine/Lixisenatide [Soliqua 100 Unit-33 Mcg/ml Pen] 15 units SQ DAILY #1 syr Acyclovir [Zovirax] 400 mg PO BID #10 cap Continue levETIRAcetam 500 mg PO BID@0900,2100 Dexamethasone 4 mg PO TID@0100,0900,1700 Fluconazole [Diflucan] 100 mg PO DAILY@1200 Lisinopril [Zestril] 5 mg PO DAILY@1200 Discharge Medication List Dexamethasone 4 mg PO TID@0100,0900,1700 03/22/19 [History] levETIRAcetam 500 mg PO BID@0900,2100 03/22/19 [History] Fluconazole [Diflucan] 100 mg PO DAILY@1200 04/07/19 [History] Lisinopril [Zestril] 5 mg PO DAILY@1200 04/07/19 [History] Acyclovir [Zovirax] 400 mg PO BID #10 cap 04/09/19 [Rx] Insulin Glargine/Lixisenatide [Soliqua 100 Unit-33 Mcg/ml Pen] 15 units SQ DAILY #1 syr 04/09/19 [Rx] Follow up Appointment(s)/Referral(s): [facility], [NON-STAFF] - Chetan Abdi MD [Primary Care Provider] - 04/09/19 (at 3pm for samples. Please schedule follow up appointment at this time. ) Jordan Reinoso MD [STAFF PHYSICIAN] - 1 Week Ambulatory/Diagnostic Orders: Complete Blood Count w/diff [LAB.AMB] Time Frame: 3 Days, Location: None Selected Patient Instructions/Handouts: Diabetic Ketoacidosis (DC) Activity/Diet/Wound Care/Special Instructions: traffic maintenance supervisor Soliqua or Xultophy samples at dr. Abdi office today at 3pm. Glucometer and testing supplies ready at [facility] - notify them at discharge and they will deliver to bedside Diet: Consistent carb Activity: Limited until follow up
[2019-04-09 22:43] LABS: Hemoglobin A1C 12.2
[2019-04-10] MEDS ORDERED: INSULIN DETEMIR (LEVEMIR) 100 UNIT/ML SYR SQ SCH (07:00)
== END 2019-04-09 11:06 | disposition home or self-care (01) | DRG 638 ==
LOC: EC 17:07 → 3SCARD 19:17
PROVIDERS: ADMIT Family Medicine; ATTEND Family Medicine
DX: E11.10 Type 2 diabetes mellitus with ketoacidosis without coma (principal); C71.9 Malignant neoplasm of brain, unspecified; F32.9 Major depressive disorder, single episode, unspecified; F41.9 Anxiety disorder, unspecified; I10 Essential (primary) hypertension; K21.9 Gastro-esophageal reflux disease without esophagitis; Z79.899 Other long term (current) drug therapy; Z98.890 Other specified postprocedural states
CPT/HCPCS: 36415; 71046; 80048; 80051; 80053; 81003; 82009; 82565; 82947; 83036; 84100; 84484; 84520; 85025; 94760; 96360; 96361; 99291

== ENCOUNTER → 2019-04-12 | Outpatient (CLI) | payer BC ==
[2019-04-12 17:21] LABS: Basophils # (A) 0.3 k/uL (0-0.2); Basophils % (A) 2 %; Eosinophils % (A) 0 %; HCT 42.1 % (39.0-53.0); HGB 13.7 gm/dL (13.0-17.5); Lymphocytes # (A) 1.7 k/uL (1.0-4.8); Lymphocytes % (A) 12 %; MCH 30.1 pg (25.0-35.0); MCHC 32.7 g/dL (31.0-37.0); MCV 92.2 fL (80.0-100.0); Mean Platelet Volume 6.3; Monocytes # (A) 0.7 k/uL (0-1.0); Monocytes % (A) 5 %; Neutrophils # (A) 11.2 k/uL (1.3-7.7); Neutrophils % (A) 79 %; Platelet Count 351 k/uL (150-450); RBC 4.56 m/uL (4.30-5.90); RDW 14.4 % (11.5-15.5); WBC 14.3 k/uL (3.8-10.6)
== END | disposition home or self-care (01) ==
LOC: LABWHC1 16:30
PROVIDERS: ATTEND Family Medicine
DX: E11.10 Type 2 diabetes mellitus with ketoacidosis without coma (principal); C71.9 Malignant neoplasm of brain, unspecified
CPT/HCPCS: 36415; 85025

== ENCOUNTER → 2019-07-01 | Outpatient (CLI) | payer BC ==
--- NOTE | 2019-07-01 12:30 | MR ---
EXAMINATION TYPE: MR brain wo/w con DATE OF EXAM: 07/01/2019 COMPARISON: 02/21/2019 outside MRI HISTORY: Malignant neoplasm of frontal lobe TECHNIQUE: Multiplanar, multisequence images of the brain and brainstem is performed without and with IV contras t, utilizing 7.5 mL intravenous Gadavist . FINDINGS: There is evolution of the previously seen cavitary lesion in the right frontal lobe with increased ce ntral T2/FLAIR hyperintensity, fluid component, and decreased degree of heterogenous blood products. The remaining nodular lobulated contour and a similar degree of vasogenic edema involving nearly the entire frontal lobe. Particularly there is a nodular enhancement of the anterior aspect of the resect ion cavity on postcontrast series 601 image 54 measuring by 7 x 7 mm. Attention is recommended on fol low-up exams to this region. The resection cavity itself measures approximately 4.5 x 4.0 x 5.4 cm. There is resolved midline shift. Degree of sulcal effacement has improved. Degree of effacement of th e right lateral ventricle has also improved and there is now some ex vacuo dilatation presumably from encephalomalacia of the right frontal lobe. Edema also involves the right basal ganglia. The previou sly seen central serpiginous enhancement is no longer evident and thin linear peripheral enhancement is seen throughout as well as dural enhancement along the postoperative dural flap. An extra-axial fl uid collection is again redemonstrated, similar in size to the prior. The previously seen copious sof t tissue edema of the right scalp soft tissues has resolved. Susceptibility artifact from craniotomy is seen along the right frontal lobe. No new intracranial lesions are seen. There is resolution of th e previously seen fluid within the right petrous apex. Leftward nasal septal deviation is seen. Scant mucosal thickening is present in the ethmoid and right maxillary sinus. Remaining paranasal sinuses and mastoid air cells are well aerated. Orbits are symmetric and unremarkable. IMPRESSION: 1. Evolution of the previously seen postoperative right frontal cavity from prior tumor resection wit h cystic conversion of previously seen blood products and resolution of the internal enhancement. New thin linear peripheral enhancement is seen with a focal solitary area of nodular enhancement anterio rly measuring 7 x 7 mm. Attention is recommended on follow-up exams at this location to exclude recur rence. 2. Resolution of the previously seen midline shift. Small extra-axial right hemispheric postoperative fluid collection does remain and is unchanged. 3. No new intracranial enhancing lesions to suggest metastasis.
== END | disposition home or self-care (01) ==
LOC: RADMRIMAIN 08:13
PROVIDERS: ATTEND Radiology Radiation Oncology
DX: C71.1 Malignant neoplasm of frontal lobe (principal); Z98.890 Other specified postprocedural states
CPT/HCPCS: 70553; A9585

== ENCOUNTER 2019-07-23 13:29 | Emergency (ER) | payer BC ==
[2019-07-23] MEDS ORDERED: levETIRAcetam IV 500 MG in SODIUM CHLORIDE 0.9% 100 ML IVPB STA (13:43)
[2019-07-23 14:19] LABS: Basophils % (A) 1 %; Eosinophils # (A) 0.2 k/uL (0-0.7); Eosinophils % (A) 3 %; HCT 44.8 % (39.0-53.0); HGB 14.2 gm/dL (13.0-17.5); Lymphocytes # (A) 0.9 k/uL (1.0-4.8); Lymphocytes % (A) 19 %; MCH 29.5 pg (25.0-35.0); MCHC 31.7 g/dL (31.0-37.0); MCV 93.1 fL (80.0-100.0); Mean Platelet Volume 7.2; Monocytes # (A) 0.3 k/uL (0-1.0); Monocytes % (A) 7 %; Neutrophils # (A) 3.2 k/uL (1.3-7.7); Neutrophils % (A) 66 %; Platelet Count 312 k/uL (150-450); RBC 4.81 m/uL (4.30-5.90); RDW 12.5 % (11.5-15.5); WBC 4.9 k/uL (3.8-10.6)
--- NOTE | 2019-07-23 14:23 | CT ---
EXAMINATION TYPE: CT brain wo con DATE OF EXAM: 07/23/2019 COMPARISON: February 13, 2019 HISTORY: Seizure CT DLP: 1102.[address] of the brain was performed. There is right frontal mass measuring 3.7 x 3.2 cm. Size is limited by lack of contrast. There is delmi rounding vasogenic edema without midline shift. There is evidence of prior right frontal craniotomy. Subdural collection is noted at the craniotomy site measuring 7 mm. No definite evidence for active h emorrhage although there is mild increased attenuation within the collection which may simply be post operative in nature. No additional masses are identified. If symptoms persist consider MRI. IMPRESSION: 1. Status post right frontal craniotomy. Underlying mass is felt to be present measuring 3.7 x 3.2 cm . There is surrounding vasogenic edema without midline shift this time. 2. Right frontal subdural collection at the site of craniotomy may simply be postoperative in nature.
--- NOTE | 2019-07-23 14:26 | XR ---
EXAMINATION TYPE: XR chest 2V DATE OF EXAM: 07/23/2019 COMPARISON: Chest x-ray April 07, 2019. HISTORY: Seizure and fall injury today. Chest pain. TECHNIQUE: Frontal and lateral views of the chest are obtained. FINDINGS: Overlying EKG leads. There is no focal air space opacity, pleural effusion, or pneumothorax seen. The cardiac silhouette size remains within normal limits. The osseous structures are intact . IMPRESSION: No acute cardiopulmonary process. No significant change from prior.
[2019-07-23 14:33] LABS: ALT 73 U/L (4-49); AST 37 U/L (17-59); African American GFR (CKD) >90 (>60 ml/min/1.73 sqM); Albumin 4.6 g/dL (3.5-5.0); Alkaline Phosphatase 108 U/L (38-126); Anion Gap 12 mmol/L; Blood Urea Nitrogen 10 mg/dL (9-20); Calcium 10.2 mg/dL (8.4-10.2); Carbon Dioxide 25 mmol/L (22-30); Chloride 104 mmol/L (98-107); Creatine Kinase 40 U/L (55-170); Glucose 107 mg/dL (74-99); Magnesium 1.8 mg/dL (1.6-2.3); Non-African American GFR(CKD) >90 (>60 ml/min/1.73 sqM); Potassium 4.5 mmol/L (3.5-5.1); Sodium 141 mmol/L (137-145); Total Bilirubin 0.7 mg/dL (0.2-1.3); Total Protein 7.5 g/dL (6.3-8.2)
[2019-07-23 15:12] LABS: Appearance,Urine Cloudy (Clear); Bacteria,Urine Rare /hpf; Bilirubin,Urine Negative (Negative); Blood,Urine Negative (Negative); Color,Urine Yellow; Glucose,Urine (UA) Negative (Negative); Hyaline Casts,Urine 10 /lpf (0-2); Ketones,Urine Negative (Negative); Leukocyte Esterase,Urine Negative (Negative); Mucus,Urine Moderate /hpf; Nitrite,Urine Negative (Negative); Protein,Urine 2+ (Negative); RBC,Urine 1 /hpf (0-5); Specific Gravity,Urine 1.021 (1.001-1.035); Squamous Epithelial Cell,Urine <1 /hpf (0-4); Urobilinogen,Urine <2.0 mg/dL (<2.0); WBC,Urine 1 /hpf (0-5)
--- NOTE | 2019-07-23 17:07 | ED ---
Seizure HPI - General Chief Complaint: Seizure Stated Complaint: Seizure Time Seen by Provider: 07/23/19 13:29 Source: family, EMS, RN notes reviewed Mode of arrival: EMS Limitations: altered mental status - History of Present Illness Initial Comments: Is a 59-year-old male with a history of a brain tumor with resection this past year who was recently been on chemotherapy who had a seizure at home last about 1 minute he had tonic-clonic activity full body lasting about a minute no tongue biting or urinary incontinence he also did have left upper lower extremity weakness which got progressively better in route to. No trauma other than possibly an abrasion of the forehead per paramedics he is not Keppra. He did recently have an MRI and further evaluation the MRI apparently showed no progression of disease at. MD Complaint: seizure - Related Data Home Medications Medication Instructions Recorded Confirmed levETIRAcetam 500 mg PO BID@0900,2100 03/22/19 07/23/19 Lisinopril [Zestril] 5 mg PO DAILY 04/07/19 07/23/19 Citalopram Hydrobromide [CeleXA] 20 mg PO DAILY 07/23/19 07/23/19 Temozolomide 15 mg PO DIRECTED 07/23/19 07/23/19 Temozolomide 280 mg PO DIRECTED 07/23/19 07/23/19 Allergies Allergy/AdvReac Type Severity Reaction Status Date / Time No Known Allergies Allergy Verified 07/23/19 14:37 Review of Systems ROS Statement: Those systems with pertinent positive or pertinent negative responses have been documented in the HPI. ROS Other: All systems not noted in ROS Statement are negative. Past Medical History Past Medical History: Cancer, GERD/Reflux, Hypertension Additional Past Medical History / Comment(s): Recent brain surgery for glioblastoma and has gait dysfunction since surgery, herpes simplex one. History of Any Multi-Drug Resistant Organisms: None Reported Past Surgical History: Orthopedic Surgery Additional Past Surgical History / Comment(s): 02/19/19 craniotomy with brain tumor resection, rt rotator cuff repair, tendon repair lt arm, colonoscopy. Past Anesthesia/Blood Transfusion Reactions: No Reported Reaction Past Psychological History: Anxiety, Depression Smoking Status: Never smoker Past Alcohol Use History: None Reported Past Drug Use History: None Reported - Past Family History Mother Family Medical History: No Reported History Additional Family Medical History / Comment(s): Father is healthy General Exam - General Exam Comments Initial Comments: This a well-developed well-nourished awake alert male somewhat slow to answer but appears be oriented x3 Limitations: altered mental status General appearance: alert, in no apparent distress Head exam: Present: normocephalic, normal inspection, other (Some erythema noted to the left forehead no step-off no crepitation no open wounds) Eye exam: Present: normal appearance, PERRL, EOMI. Absent: scleral icterus, conjunctival injection, periorbital swelling ENT exam: Present: normal exam, mucous membranes moist Neck exam: Present: normal inspection. Absent: tenderness, meningismus, lymphadenopathy Respiratory exam: Present: normal lung sounds bilaterally. Absent: respiratory distress, wheezes, rales, rhonchi, stridor Cardiovascular Exam: Present: regular rate, normal rhythm, normal heart sounds. Absent: systolic murmur, diastolic murmur, rubs, gallop, clicks GI/Abdominal exam: Present: soft, normal bowel sounds. Absent: distended, tenderness, guarding, rebound, rigid Extremities exam: Present: normal inspection, full ROM, normal capillary refill. Absent: tenderness, pedal edema, joint swelling, calf tenderness Back exam: Present: normal inspection Neurological exam: Present: alert, oriented X3, CN II-XII intact Psychiatric exam: Present: normal affect, normal mood Skin exam: Present: warm, dry, intact, normal color. Absent: rash Course Vital Signs 07/23/19 13:35 Temperature 97.9 F Pulse Rate 67 Respiratory 16 Rate Blood Pressure 141/100 O2 Sat by Pulse 99 Oximetry Medical Decision Making - Medical Decision Making The patient on further examination was awake alert oriented history back to his normal state this is confirmed by the patient and his family was present. After discussion with Dr. Reinoso the patient is in condition to go home he will be discharged we did discuss [facility] referral he has seen Dr. Mayo in the past and will follow up outpatient for management of antiseizure medication. - Lab Data Result diagrams: 07/23/19 13:37 07/23/19 13:37 Lab Results 07/23/19 07/23/19 07/23/19 Range/Units 13:37 13:37 13:37 WBC 4.9 (3.8-10.6) k/uL RBC 4.81 (4.30-5.90) m/uL Hgb 14.2 (13.0-17.5) gm/dL Hct 44.8 (39.0-53.0) % MCV 93.1 (80.0-100.0) fL MCH 29.5 (25.0-35.0) pg MCHC 31.7 (31.0-37.0) g/dL RDW 12.5 (11.5-15.5) % Plt Count 312 (150-450) k/uL Neutrophils % 66 % Lymphocytes % 19 % Monocytes % 7 % Eosinophils % 3 % Basophils % 1 % Neutrophils # 3.2 (1.3-7.7) k/uL Lymphocytes # 0.9 L (1.0-4.8) k/uL Monocytes # 0.3 (0-1.0) k/uL Eosinophils # 0.2 (0-0.7) k/uL Basophils # 0.0 (0-0.2) k/uL Sodium 141 (137-145) mmol/L Potassium 4.5 (3.5-5.1) mmol/L Chloride 104 (98-107) mmol/L Carbon Dioxide 25 (22-30) mmol/L Anion Gap 12 mmol/L BUN 10 (9-20) mg/dL Creatinine 0.62 L (0.66-1.25) mg/dL Est GFR (CKD-EPI)AfAm >90 (>60 ml/min/1.73 sqM) Est GFR (CKD-EPI)NonAf >90 (>60 ml/min/1.73 sqM) Glucose 107 H (74-99) mg/dL Calcium 10.2 (8.4-10.2) mg/dL Magnesium 1.8 (1.6-2.3) mg/dL Total Bilirubin 0.7 (0.2-1.3) mg/dL AST 37 (17-59) U/L ALT 73 H (4-49) U/L Alkaline Phosphatase 108 (38-126) U/L Creatine Kinase 40 L (55-170) U/L Troponin I <0.012 (0.000-0.034) ng/mL Total Protein 7.5 (6.3-8.2) g/dL Albumin 4.6 (3.5-5.0) g/dL Lipase 73 (23-300) U/L Urine Color Urine Appearance (Clear) Urine pH (5.0-8.0) Ur Specific [place] (1.001-1.035) Urine Protein (Negative) Urine Glucose (UA) (Negative) Urine Ketones (Negative) Urine Blood (Negative) Urine Nitrite (Negative) Urine Bilirubin (Negative) Urine Urobilinogen (<2.0) mg/dL Ur Leukocyte Esterase (Negative) Urine RBC (0-5) /hpf Urine WBC (0-5) /hpf Ur Squamous Epith Cells (0-4) /hpf Urine Bacteria (None) /hpf Hyaline Casts (0-2) /lpf Urine Mucus (None) /hpf 07/23/19 Range/Units 14:57 WBC (3.8-10.6) k/uL RBC (4.30-5.90) m/uL Hgb (13.0-17.5) gm/dL Hct (39.0-53.0) % MCV (80.0-100.0) fL MCH (25.0-35.0) pg MCHC (31.0-37.0) g/dL RDW (11.5-15.5) % Plt Count (150-450) k/uL Neutrophils % % Lymphocytes % % Monocytes % % Eosinophils % % Basophils % % Neutrophils # (1.3-7.7) k/uL Lymphocytes # (1.0-4.8) k/uL Monocytes # (0-1.0) k/uL Eosinophils # (0-0.7) k/uL Basophils # (0-0.2) k/uL Sodium (137-145) mmol/L Potassium (3.5-5.1) mmol/L Chloride (98-107) mmol/L Carbon Dioxide (22-30) mmol/L Anion Gap mmol/L BUN (9-20) mg/dL Creatinine (0.66-1.25) mg/dL Est GFR (CKD-EPI)AfAm (>60 ml/min/1.73 sqM) Est GFR (CKD-EPI)NonAf (>60 ml/min/1.73 sqM) Glucose (74-99) mg/dL Calcium (8.4-10.2) mg/dL Magnesium (1.6-2.3) mg/dL Total Bilirubin (0.2-1.3) mg/dL AST (17-59) U/L ALT (4-49) U/L Alkaline Phosphatase (38-126) U/L Creatine Kinase (55-170) U/L Troponin I (0.000-0.034) ng/mL Total Protein (6.3-8.2) g/dL Albumin (3.5-5.0) g/dL Lipase (23-300) U/L Urine Color Yellow Urine Appearance Cloudy (Clear) Urine pH 6.0 (5.0-8.0) Ur Specific [place] 1.021 (1.001-1.035) Urine Protein 2+ H (Negative) Urine Glucose (UA) Negative (Negative) Urine Ketones Negative (Negative) Urine Blood Negative (Negative) Urine Nitrite Negative (Negative) Urine Bilirubin Negative (Negative) Urine Urobilinogen <2.0 (<2.0) mg/dL Ur Leukocyte Esterase Negative (Negative) Urine RBC 1 (0-5) /hpf Urine WBC 1 (0-5) /hpf Ur Squamous Epith Cells <1 (0-4) /hpf Urine Bacteria Rare H (None) /hpf Hyaline Casts 10 H (0-2) /lpf Urine Mucus Moderate H (None) /hpf - EKG Data -: EKG Interpreted by Me EKG shows normal: sinus rhythm EKG Comments: Sinus rhythm rate 61 appear interval 150 QRS duration 82 QT since QTC 404/46 st- t wave changes - Radiology Data Radiology results: report reviewed (I did review the imaging and report the CT report showed what appear to be frontal mass measuring 3.7 x 3.2 cm with surrounding vasogenic edema without shift this was compared to the MRI and I did discuss the case with Dr. guerra's apparently is resection cavitation that is noted), image reviewed Disposition Clinical Impression: Generalized seizure, History of brain tumor Disposition: HOME SELF-CARE Condition: Good Instructions (If sedation given, give patient instructions): Generalized Tonic Clonic Seizures (ED) Is patient prescribed a controlled substance at d/c from ED?: No Referrals: Chetan Abdi MD [Primary Care Provider] - 1-2 days Chris Mayo MD [STAFF PHYSICIAN] - 1-2 days
[2019-07-23 17:33] VITALS: BP 137/95; PULSE 57; RESP 19; TEMP 98.1
== END 2019-07-23 17:34 | disposition home or self-care (01) ==
LOC: EC 13:29
DX: G40.409 Other generalized epilepsy and epileptic syndromes, not intractable, without status epilepticus (principal); I10 Essential (primary) hypertension; F32.9 Major depressive disorder, single episode, unspecified; M10.9 Gout, unspecified; Z98.890 Other specified postprocedural states; Z79.899 Other long term (current) drug therapy; Z85.841 Personal history of malignant neoplasm of brain; Z92.21 Personal history of antineoplastic chemotherapy
CPT/HCPCS: 36415; 93005; 80053; 82550; 83690; 83735; 84484; 85025; 81001; 71046; 70450; 99285; 96365; J1953

== ENCOUNTER → 2019-10-16 | Outpatient (CLI) | payer BC ==
--- NOTE | 2019-10-16 16:10 | MR ---
EXAMINATION TYPE: MR brain wo/w con DATE OF EXAM: 10/16/2019 COMPARISON: Prior MRI brain August 05, 2009 and older MRIs HISTORY: F/U brain tumor resection TECHNIQUE: Multiplanar, multisequence images of the brain and brainstem is performed without and with IV contras t, utilizing 9 mL intravenous Gadavist . FINDINGS: Diffusion weighted images demonstrate no evidence of a recent infarct or other diffusion ab normality. There is redemonstration of right frontal surgical change with surgical resection cavity t hat has rim T1 and T2 hypointensity or presumed old blood product is redemonstrated and stable measur ing 2.8 x 2.5 cm axial image 49 series 501 for reference. Degree of surrounding vasogenic edema appea rs unchanged from prior study. Inferior extension to right basal ganglia and anterior inferior right frontal lobe redemonstrated. No new midline shift. Postcontrast images show persistent peripheral sli ghtly irregular and adjacent slightly thickened dural enhancement without additional area of new susp icious thickened or nodular enhancement. The anterior-inferior 7 x 7 mm area of nodular enhancement s eries 601 image 54 shows no significant interval progression from last 2 MRIs. There is background mild diffuse cerebral atrophy redemonstrated. Midline structures redemonstrate no rmal morphology. The craniocervical junction appears within normal limits. The dural venous sinuses appear patent. Persistent mild mucosal thickening involving the paranasal sinuses in particular fron doris and ethmoid sinuses bilaterally. IMPRESSION: Overall stable findings suggestive of successful surgical treatment without new or enlarg ing suspicious enhancement to suggest recurrent active neoplasm.
== END | disposition home or self-care (01) ==
LOC: RADMRIMAIN 14:35
PROVIDERS: ATTEND Radiology Radiation Oncology
DX: C71.1 Malignant neoplasm of frontal lobe (principal); Z98.890 Other specified postprocedural states
CPT/HCPCS: 70553; A9585

== ENCOUNTER → 2019-12-25 | Outpatient (CLI) | payer BC ==
--- NOTE | 2019-12-25 13:07 | XR ---
Left shoulder HISTORY: Left shoulder pain 3 views of the left shoulder Bone mineralization is reduced. The cortical thickening the distal clavicle on the left is again note d and is likely due to remote trauma. Alignment is maintained. Left lung apex as visualized is normal . Distal acromial spur is noted. Distal acromion appears downturned. IMPRESSION: No acute fracture or dislocation. Evidence of remote trauma. Osteopenia. Correlate for po ssible impingement, alternate imaging may be of benefit.
== END | disposition home or self-care (01) ==
LOC: RADXRMAIN 12:27
PROVIDERS: ATTEND Family Medicine
DX: M85.812 Other specified disorders of bone density and structure, left shoulder (principal); T14.90XA Injury, unspecified, initial encounter

== ENCOUNTER → 2019-12-31 | Outpatient (CLI) | payer BC ==
--- NOTE | 2019-12-31 16:17 | MR ---
EXAMINATION TYPE: MR brain wo/w con DATE OF EXAM: 12/31/2019 COMPARISON: 10/16/2019 HISTORY: Follow up to Brain CA, post resection follow up. High Grade Glioma CONTRAST: Performed utilizing 7.5 mL intravenous Gadavist gadolinium contrast. TECHNIQUE: Multiplanar, multiecho imaging on a 3.0 Alondra magnet is performed through the brain. Stud y is performed within 24 hours of arrival to the hospital. The craniovertebral junction is normal. The pituitary is normal. Diffusion-weighted imaging is performed. No abnormal hyperintensity is present to suggest an acute i ntracranial infarct or acute ischemic change. Inferior resection within the right frontal lobe currently measures 2.8 x 2.4 cm. This is smaller thomas n the 3.0 x 3.3 cm. Extensive white matter changes present in the frontal and parietal lobes compatib le with vasogenic edema or post radiation changes. Some mild white matter changes are in the left per iventricular white matter. On postcontrast imaging a ring of enhancement is present at the resection site which can be postsurgi marvin in nature. An area of previous nodularity along the anterior inferior region appears slightly lar sincere measuring up to 0.9 cm. Previous measurement 0.7 cm. This may be due to the plane of section. Rec urrence within the differential. Series 601 image 54. Cranial caudal dimension is 1.1 cm as is the tr ansverse dimension the coronal plane. Series 602, image 29. Previous measurement 0.8 x 0.8 cm. Ventricles and sulci are appropriate for the patient age. Postsurgical changes are in the right parietal vertex. IMPRESSIONS: 1. The postsurgical changes have diminished in size and have a similar enhancing border to the previo us examination. 2. Small anterior nodular area of enhancement along the border of the resection has increased in size and corresponds to the previous described nodularity. Recurrence at this level should be considered. 3. White matter changes through the right centrum semiovale compatible with postradiation changes. So me vasogenic edema may be contributing although no significant mass effect affecting adjacent sulci i s evident.
== END | disposition home or self-care (01) ==
LOC: RADMRIMAIN 12:09
PROVIDERS: ATTEND Radiology Radiation Oncology
DX: C71.1 Malignant neoplasm of frontal lobe (principal); Z92.3 Personal history of irradiation; Z98.890 Other specified postprocedural states
CPT/HCPCS: 70553; A9585

== ENCOUNTER → 2020-03-11 | Outpatient (CLI) | payer BC ==
--- NOTE | 2020-03-12 21:47 | MR ---
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 TECHNIQUE: Multiplanar, multiecho imaging on a 3.0 Alondra magnet is performed through the brain. Stud y is performed within 24 hours of arrival to the hospital. The craniovertebral junction is normal. The pituitary is normal. Diffusion-weighted imaging is performed. No abnormal hyperintensity is present to suggest an acute i ntracranial infarct or acute ischemic change. There is extensive white matter change through the right frontal and parietal lobes. This appears mor e extensive than the comparison. This can be postradiation change. There is a small amount of mass ef fect on the sulci without midline shift. Vasogenic edema should be considered. There is a large lobular peripherally enhancing mass within the right frontal lobe. This currently me asures 5.5 x 3.2 cm. Series 601 image 66 this is larger than the 4.0 x 2.2 cm previous size. There is some more focal enhancement along the lateral margin of this mass. This measures approximate ly 2 cm in length. Series 601 image 70 small area of 0.5 cm more focal enhancement is in the medial a spect, series 601 image 60 Right lateral ventricle is compressed. Midline shift is not evident. Quadrigeminal plate and ambient cistern are patent. No entrapment or compression of the temporal horn of the lateral ventricles evide nt. IMPRESSIONS: 1. Enlarging lobular mass right frontal lobe. Increasing vasogenic edema causing some effacement of t he sulci without midline shift. Some effacement of the right lateral ventricle is present.
== END | disposition home or self-care (01) ==
LOC: RADMRIMAIN 10:27
PROVIDERS: ATTEND Radiology Radiation Oncology
DX: C71.1 Malignant neoplasm of frontal lobe (principal); Z92.3 Personal history of irradiation; Z98.890 Other specified postprocedural states
CPT/HCPCS: 70553; A9585

== ENCOUNTER → 2020-06-03 | Outpatient (CLI) | payer BC ==
--- NOTE | 2020-06-03 17:30 | MR ---
EXAMINATION TYPE: MR brain wo/w con DATE OF EXAM: 06/03/2020 COMPARISON: 03/11/2020 HISTORY: 60-year-old male glioma Resection of brain on Feb 19 2019, Left side weakness and numbness , prev on pacs TECHNIQUE: Multiplanar, multisequence images of the brain and brainstem is performed without and with IV contrast, utilizing 7.5 mL intravenous Gadavist . FINDINGS: Redemonstrated right frontal craniotomy flap with underlying resection cavity. The resection cavity measures up to 4 cm craniocaudal versus 5.5 cm, previously. This shows some inte rval decrease in size and even the irregular peripheral enhancement has decreased in thickness and de gree of enhancement. The most pronounced decrease is seen along the anterior margin of the resection cavity. Correspondingly, the extensive surrounding T2/FLAIR signal hyperintensity has also improved. Increase d signal continues throughout the right frontal lobe white extension into the parietal lobe has nearl y resolved and the extension into the insular lobe has significantly decreased. There is much less mass effect on to the right lateral ventricle and now slight ex vacuo enlargement. However, enhancing nodular soft tissue located along the superior and lateral wall of the resection c avity persists and appears more bulky now, for example, on axial image 70 measures 1.8 x 1.5 cm versu s 1.5 x 1.0 cm, previously. This spans approximately 3.3 cm craniocaudal, refer to postcontrast coron al image 85 (versus approximately 3.0 cm on 03/11/2020). This region shows corresponding restricted di ffusion. Increasing irregular enhancement is seen along the inferior aspect of the resection cavity, refer to coronal image 42. The overlying enhancing dural thickening, axial image 70 is relatively similar. Dural venous sinuses are patent. No new remote areas of enhancement are identified. IMPRESSION: 1. Right frontal craniotomy flap with underlying resection cavity. Anterior and medial margins of the resection cavity show improvement in the degree and extent of enhancement suggesting posttreatment c hange. However, there is increasing irregular enhancement along the inferior aspect of the resection cavity. 2. In addition, nodular enhancing soft tissue within the superior and lateral portion of the resectio n cavity continues to increase in bulk (for example 1.8 x 1.5 cm versus 1.5 x 1.0 cm, previously. And measuring 3.3 cm craniocaudal versus 3.0 cm, previously). This area of nodular enhancement shows cor responding restricted diffusion which can be seen with hypercellularity. Continued slow local progres aleshia is not excluded. 3. Improving vasogenic edema throughout the right cerebral hemisphere. While bright white matter ryan ge persists throughout the right frontal lobe, most of the signal abnormality in the right parietal l obe has resolved and only mild signal change remains in the right insular lobe. 4. The mass effect onto the right lateral ventricle has resolved and there is now slight ex vacuo enl argement.
== END | disposition home or self-care (01) ==
LOC: RADMRIMAIN 14:03
PROVIDERS: ATTEND Radiology Radiation Oncology
DX: G93.6 Cerebral edema (principal); R90.82 White matter disease, unspecified; G91.9 Hydrocephalus, unspecified; R90.89 Other abnormal findings on diagnostic imaging of central nervous system; C71.1 Malignant neoplasm of frontal lobe; Z92.3 Personal history of irradiation; Z98.890 Other specified postprocedural states
CPT/HCPCS: 70553; A9585

== ENCOUNTER → 2020-08-08 | Outpatient (CLI) | payer BC ==
--- NOTE | 2020-08-08 11:22 | MR ---
EXAMINATION TYPE: MR brain wo/w con DATE OF EXAM: 08/08/2020 COMPARISON: 06/03/2020 HISTORY: malignant neoplasm frontal lobe, F/U after treatment TECHNIQUE: Multiplanar, multisequence images of the brain and brainstem is performed without and with IV contras t, utilizing 8.5 mL intravenous Gadavist . FINDINGS: There is a right frontal craniotomy defect with resection cavity. There has been interval g rowth in the tumor recurrence in the resection cavity. Previously the enhancing mass measured approxi mately 15 x 18 mm but now measures approximately 18 mm x 25 mm. in addition there is a new satellite lesion immediately adjacent to the frontal horn of the right lateral ventricle measuring 13.6 mm. Th is Satellite lesion is seen as an area of mild contrast enhancement and new diffusion restriction on the diffusion-weighted image. There is slight midline shift to the right secondary to ex vacuo dilatation from the resection cavity . The degree of dural thickening and enhancement overlying the resection cavity is essentially unchange d. The posterior fossa including the brainstem, fourth ventricle and cerebellar pontine angles appear no rmal. Intraorbital contents appear normal and symmetric. The visualized paranasal sinuses and mastoid air c ells are well aerated. IMPRESSION: Interval progression of neoplastic disease of the brain with increase in size of the recurrent mass i n the resection cavity and new adjacent satellite lesion as described above
== END | disposition home or self-care (01) ==
LOC: RADMRIMAIN 09:31
PROVIDERS: ATTEND Radiology Radiation Oncology
DX: C71.1 Malignant neoplasm of frontal lobe (principal); Z92.3 Personal history of irradiation; Z98.890 Other specified postprocedural states
CPT/HCPCS: 70553; A9585

== ENCOUNTER → 2020-09-02 | Outpatient (CLI) | payer BC ==
--- NOTE | 2020-09-02 13:21 | MR ---
EXAMINATION TYPE: MR brain wo/w con DATE OF EXAM: 09/02/2020 COMPARISON: 08/08/2020 and 06/03/2020 HISTORY: 60-year-old male C71.1, Malignant neoplasm frontal lobe. History on prior report indicates g lioma resection on 02/19/2019. TECHNIQUE: Multiplanar, multisequence images of the brain and brainstem were acquired before and aft er administration of 8.5 mL IV Gadavist. Diffusion weighted imaging is performed. FINDINGS: Redemonstrated right frontal craniotomy flap. Underlying resection cavity with a chronic dural thicke lennox. Redemonstrated abnormal lobulated mass within the resection cavity. This measures up to 3.3 x 2.5 cm versus 3.3 x 2.1 cm on 08/08/2020 and 2.8 x 1.5 cm on 06/03/2020. This spans up to 3.8 cm craniocaudal on the coronal sequence versus 3.5 cm on 08/08/2020 and 3.1 cm on 06/03/2020 Irregular enhancement along the inferior margin of the resection cavity remains unchanged. The degree of surrounding vasogenic edema on the right appears relatively similar. Associated sulcal effacement. No midline shift or herniation. No new enhancing lesions are seen. Dural venous sinuses are patent. Moderate mucosal thickening ethmoid air cells and frontal sinuses. Leftward nasal septal deviation IMPRESSION: 1. Lobulated enhancing mass within the right frontal resection cavity measures relatively similar at 3.8 x 3.3 x 2.5 cm (versus 3.5 x 3.3 x 2.1 cm on 08/08/2020). Irregular enhancement along the inferior margin of the resection cavity is unchanged. 2. Associated surrounding T2 bright white matter change is similar compared to 08/08/2020.
== END | disposition home or self-care (01) ==
LOC: RADMRIMAIN 10:41
PROVIDERS: ATTEND Radiology Radiation Oncology
DX: G93.89 Other specified disorders of brain (principal); R90.82 White matter disease, unspecified; C71.1 Malignant neoplasm of frontal lobe; Z92.3 Personal history of irradiation; Z98.890 Other specified postprocedural states
CPT/HCPCS: 70553; A9585

== ENCOUNTER 2020-09-30 18:37 | Observation (INO) | payer BC ==
[2020-09-30 20:16] LABS: Basophils % (A) 1 %; Eosinophils # (A) 0.3 k/uL (0-0.7); Eosinophils % (A) 3 %; HCT 49.9 % (39.0-53.0); HGB 17.2 gm/dL (13.0-17.5); Lymphocytes # (A) 2.3 k/uL (1.0-4.8); Lymphocytes % (A) 30 %; MCH 30.9 pg (25.0-35.0); MCHC 34.6 g/dL (31.0-37.0); MCV 89.3 fL (80.0-100.0); Mean Platelet Volume 7.3; Monocytes # (A) 0.6 k/uL (0-1.0); Monocytes % (A) 8 %; Neutrophils # (A) 4.2 k/uL (1.3-7.7); Neutrophils % (A) 55 %; Platelet Count 265 k/uL (150-450); RBC 5.58 m/uL (4.30-5.90); RDW 12.6 % (11.5-15.5); WBC 7.7 k/uL (3.8-10.6)
[2020-09-30 20:21] LABS: ALT 55 U/L (4-49); AST 55 U/L (17-59); African American GFR (CKD) >90 (>60 ml/min/1.73 sqM); Albumin 4.7 g/dL (3.5-5.0); Alkaline Phosphatase 79 U/L (38-126); Anion Gap 12 mmol/L; Blood Urea Nitrogen 21 mg/dL (9-20); Calcium 10.2 mg/dL (8.4-10.2); Carbon Dioxide 22 mmol/L (22-30); Chloride 105 mmol/L (98-107); Glucose 96 mg/dL (74-99); Non-African American GFR(CKD) >90 (>60 ml/min/1.73 sqM); Sodium 139 mmol/L (137-145); Total Bilirubin 1.6 mg/dL (0.2-1.3); Total Protein 7.9 g/dL (6.3-8.2)
[2020-09-30 20:44] LABS: Partial Thromboplastin Time 24.3 sec (22.0-30.0); Prothrombin Time 10.4 sec (9.0-12.0)
--- NOTE | 2020-09-30 21:22 | CT ---
EXAM: CT brain wo con CLINICAL HISTORY: Weakness. COMPARISON: 07/23/2019. TECHNIQUE: Contiguous axial noncontrast images of the brain were obtained. Coronal and sagittal refor mats were generated and reviewed. Automated dose control was used for this exam. FINDINGS: There is no evidence for intracranial hemorrhage, mass effect or midline shift. Stable right frontal lobe encephalomalacia. Otherwise the white matter is grossly preserved. Ventricular size and configuration is within normal limits for degree of parenchymal volume. The paranasal sinuses are clear. The mastoid air cells are clear. No acute osseous abnormality. Right frontal craniotomy seen. IMPRESSION: No acute intracranial abnormality. Interval resolution of previous right frontal subdural collections. Stable right frontal lobe encepha lomalacia.
--- NOTE | 2020-09-30 21:31 | CT ---
EXAM: CTA HEAD AND NECK INDICATION: Left-sided weakness. Prior surgery. COMPARISON: None. TECHNIQUE: CTA of the head and neck was performed with multiplanar and MIP reformats generated and re viewed. Stenosis evaluation is based on [place] Symptomatic Carotid Endarterectomy Trial (NASC ET). intravenous contrast was administered. FINDINGS: There is normal three-vessel branching of the aorta. There is mild to moderate approximately 50% sten osis of the left proximal ICA and mild stenosis less than 50% stenosis of the right proximal ICA. Oth erwise no evidence of high-grade stenosis, dissection or aneurysm seen in the remainder of bilateral common carotid, cervical internal carotid and vertebral arteries. There is no evidence of high-grade stenosis, dissection or aneurysm in the intracranial internal clements tid arteries, anterior, middle and posterior cerebral arteries as well as in the imaged vertebral and basilar arteries. The communicating arteries are unremarkable. IMPRESSION: No acute abnormality of the CTA head/neck. Mild to moderate left and mild right proximal ICA stenosis.
--- NOTE | 2020-09-30 22:16 | ED ---
General Adult HPI - General Chief complaint: Seizure Stated complaint: neuro consult Time Seen by Provider: 09/30/20 18:55 Source: patient Mode of arrival: ambulatory Limitations: no limitations - History of Present Illness Initial comments: 60-year-old male patient presents to the emergency department today for evaluation of left-sided weakness. Patient has known right-sided brain tumor diagnosed in January 2019, has had surgery. Has residual left-sided weakness related to this. reports that he had a seizure earlier this morning around 12:45 AM. States that he did have left-sided facial droop and slurred speech lasting approximately 20-30 minutes. States they went to bed shortly afterwards. When he woke up today around noon he was having difficulty walking due to left leg weakness. States though he does have some general weakness to that side he is usually able to walk without difficulty. States that the slurred speech and facial droop did resolve. Has had no other new symptoms. Denies any headache, blurred vision, double vision. Denies any dizziness. Patient denies any recent rash, fever, chills, cough, shortness of breath, chest pain, abdominal pain, nausea, vomiting, diarrhea, constipation, back pain, hematuria, dysuria, urinary urgency, urinary frequency, or any other complaints. - Related Data Home Medications Medication Instructions Recorded Confirmed levETIRAcetam 500 mg PO BID@0900,2100 03/22/19 07/23/19 lisinopriL [Zestril] 5 mg PO DAILY 04/07/19 07/23/19 Citalopram Hydrobromide [CeleXA] 20 mg PO DAILY 07/23/19 07/23/19 Temozolomide 15 mg PO DIRECTED 07/23/19 07/23/19 Temozolomide 280 mg PO DIRECTED 07/23/19 07/23/19 Allergies Allergy/AdvReac Type Severity Reaction Status Date / Time No Known Allergies Allergy Verified 07/23/19 14:37 Review of Systems ROS Statement: Those systems with pertinent positive or pertinent negative responses have been documented in the HPI. ROS Other: All systems not noted in ROS Statement are negative. Past Medical History Past Medical History: Cancer, GERD/Reflux, Hypertension Additional Past Medical History / Comment(s): Recent brain surgery for glioblastoma and has gait dysfunction since surgery, herpes simplex one. History of Any Multi-Drug Resistant Organisms: None Reported Past Surgical History: Orthopedic Surgery Additional Past Surgical History / Comment(s): 02/19/19 craniotomy with brain tumor resection, rt rotator cuff repair, tendon repair lt arm, colonoscopy. Past Anesthesia/Blood Transfusion Reactions: No Reported Reaction Past Psychological History: Anxiety, Depression Smoking Status: Never smoker Past Alcohol Use History: None Reported Past Drug Use History: None Reported - Past Family History Mother Family Medical History: No Reported History Additional Family Medical History / Comment(s): Father is healthy General Exam Limitations: no limitations General appearance: alert, in no apparent distress, other (Is a well-developed, well-nourished adult male patient in no acute distress. Vital signs upon presentation are temperature 97.8F, pulse 74, respirations 16, blood pressure 116/78, pulse ox 97% on room air.) Eye exam: Present: normal appearance, PERRL, EOMI. Absent: scleral icterus, conjunctival injection, nystagmus, periorbital swelling ENT exam: Present: normal exam, normal oropharynx, mucous membranes moist Respiratory exam: Present: normal lung sounds bilaterally. Absent: respiratory distress, wheezes, rales, rhonchi, stridor Cardiovascular Exam: Present: regular rate, normal rhythm, normal heart sounds. Absent: systolic murmur, diastolic murmur, rubs, gallop, clicks GI/Abdominal exam: Present: soft, normal bowel sounds. Absent: distended, tenderness, guarding, rebound, rigid Neurological exam: Present: alert, oriented X3 Expanded Speech: Present: fluid speech Cranial nerves: EOM's Intact: Normal, Tongue Deviation: Normal, Nystagmus: N ormal, Facial Palsy with Forehead Movement: Normal, Facial Palsy without Forehead Movement: Normal Upper motor neuron: Pronator Drift: Abnormal Left Motor strength exam: RUE: 5, LUE: 2/1, RLE: 5, LLE: 2/1 Eye Response: (4) open spontaneously Motor Response: (6) obeys commands Verbal Response: (5) oriented Psychiatric exam: Present: normal affect, normal mood Skin exam: Present: warm, dry, intact, normal color. Absent: rash Course Vital Signs 09/30/20 09/30/20 09/30/20 18:46 20:15 21:17 Temperature 97.8 F 97.6 F Pulse Rate 74 78 59 L Respiratory 16 18 20 Rate Blood Pressure 116/78 119/66 119/66 O2 Sat by Pulse 97 95 95 Oximetry EKG Findings - EKG Comments: EKG Findings:: EKG obtained at 2005 was normal sinus rhythm with a ventricular rate of 61, ID interval 168, QR advent 84, QT 400, QTC 402. No evidence of ST elevation or depression. Medical Decision Making - Medical Decision Making 60-year-old male patient presents to the emergency department today for evaluation of left-sided weakness after having a seizure earlier this morning at 0045. He did have left-sided facial droop and slurred speech resolved after chidi roximately 20-30 minutes. Reports upon wakening today he has had increased weakness to the left leg and is unable to walk. His equal examination is unremarkable. He does have weakness to the left arm which is residual related to his brain tumor. Did have drift to the left leg. CTA and CT brain without contrast was obtained and were unremarkable. EKG was unremarkable. Chest x-ray is negative. He'll be admitted to the hospital for further neurologic evaluation and monitoring. Patient family is agreeable this plan. Case discussed with my attending Dr. Quesada. - Lab Data Result diagrams: 09/30/20 19:55 09/30/20 19:55 Lab Results 09/30/20 09/30/20 09/30/20 Range/Units 19:55 19:55 19:55 WBC 7.7 (3.8-10.6) k/uL RBC 5.58 (4.30-5.90) m/uL Hgb 17.2 (13.0-17.5) gm/dL Hct 49.9 (39.0-53.0) % MCV 89.3 (80.0-100.0) fL MCH 30.9 (25.0-35.0) pg MCHC 34.6 (31.0-37.0) g/dL RDW 12.6 (11.5-15.5) % Plt Count 265 (150-450) k/uL MPV 7.3 Neutrophils % 55 % Lymphocytes % 30 % Monocytes % 8 % Eosinophils % 3 % Basophils % 1 % Neutrophils # 4.2 (1.3-7.7) k/uL Lymphocytes # 2.3 (1.0-4.8) k/uL Monocytes # 0.6 (0-1.0) k/uL Eosinophils # 0.3 (0-0.7) k/uL Basophils # 0.0 (0-0.2) k/uL PT 10.4 (9.0-12.0) sec INR 1.0 (<1.2) APTT 24.3 (22.0-30.0) sec Sodium 139 (137-145) mmol/L Potassium 5.0 (3.5-5.1) mmol/L Chloride 105 (98-107) mmol/L Carbon Dioxide 22 (22-30) mmol/L Anion Gap 12 mmol/L BUN 21 H (9-20) mg/dL Creatinine 0.74 (0.66-1.25) mg/dL Est GFR (CKD-EPI)AfAm >90 (>60 ml/min/1.73 sqM) Est GFR (CKD-EPI)NonAf >90 (>60 ml/min/1.73 sqM) Glucose 96 (74-99) mg/dL Calcium 10.2 (8.4-10.2) mg/dL Total Bilirubin 1.6 H (0.2-1.3) mg/dL AST 55 (17-59) U/L ALT 55 H (4-49) U/L Alkaline Phosphatase 79 (38-126) U/L Troponin I (0.000-0.034) ng/mL Total Protein 7.9 (6.3-8.2) g/dL Albumin 4.7 (3.5-5.0) g/dL 09/30/20 Range/Units 19:55 WBC (3.8-10.6) k/uL RBC (4.30-5.90) m/uL Hgb (13.0-17.5) gm/dL Hct (39.0-53.0) % MCV (80.0-100.0) fL MCH (25.0-35.0) pg MCHC (31.0-37.0) g/dL RDW (11.5-15.5) % Plt Count (150-450) k/uL MPV Neutrophils % % Lymphocytes % % Monocytes % % Eosinophils % % Basophils % % Neutrophils # (1.3-7.7) k/uL Lymphocytes # (1.0-4.8) k/uL Monocytes # (0-1.0) k/uL Eosinophils # (0-0.7) k/uL Basophils # (0-0.2) k/uL PT (9.0-12.0) sec INR (<1.2) APTT (22.0-30.0) sec Sodium (137-145) mmol/L Potassium (3.5-5.1) mmol/L Chloride (98-107) mmol/L Carbon Dioxide (22-30) mmol/L Anion Gap mmol/L BUN (9-20) mg/dL Creatinine (0.66-1.25) mg/dL Est GFR (CKD-EPI)AfAm (>60 ml/min/1.73 sqM) Est GFR (CKD-EPI)NonAf (>60 ml/min/1.73 sqM) Glucose (74-99) mg/dL Calcium (8.4-10.2) mg/dL Total Bilirubin (0.2-1.3) mg/dL AST (17-59) U/L ALT (4-49) U/L Alkaline Phosphatase (38-126) U/L Troponin I <0.012 (0.000-0.034) ng/mL Total Protein (6.3-8.2) g/dL Albumin (3.5-5.0) g/dL - Radiology Data Radiology results: report reviewed, image reviewed CT angiography had neck was obtained. Report was reviewed in its entirety. Impression by Dr. Smallwood shows no acute abnormality of the CTA head and neck. Mild to moderate left and mild right proximal ICA stenosis. CT brain without contrast was obtained. Report reviewed in its entirety. Impression by Dr. Smallwood shows no acute intracranial abnormality. Interval resolution of previous right frontal subdural collections. Stable right frontal lobe encephalomalacia. Disposition Clinical Impression: Seizure, Left-sided weakness Disposition: ADMITTED IP TO THIS [facility] Condition: Serious Referrals: Levon Espinoza Jr, [Primary Care Provider] - 1-2 days Decision to Admit Reason: Admit from EC Decision Date: 09/30/20 Decision Time: 22:51
--- NOTE | 2020-09-30 22:16 | XR ---
EXAMINATION TYPE: XR chest 2V DATE OF EXAM: 09/30/2020 COMPARISON: 07/23/2019. HISTORY: Altered mental status. TECHNIQUE: Frontal and lateral views of the chest are obtained. FINDINGS: There is no focal air space opacity, pleural effusion, or pneumothorax seen. The cardiac silhouette size is within normal limits. The osseous structures are intact. IMPRESSION: No acute cardiopulmonary process.
[2020-09-30] MEDS ORDERED: NALOXONE 0.4 MG/ML 1 ML VIAL IV PRN (22:49)
[2020-10-01] MEDS: levETIRAcetam 500 MG TAB PO SCH ×2 (04:18→10:55)
[2020-10-01 10:07] VITALS: RESP 18
[2020-10-01] MEDS ORDERED: lisinopriL 5 MG TAB PO SCH (10:30)
[2020-10-01] MEDS ORDERED: CITALOPRAM HYDROBROMIDE 20 MG TAB PO SCH (10:30)
[2020-10-01] MEDS ORDERED: levETIRAcetam 250 MG TAB PO ONE (12:30)
[2020-10-01] MEDS ORDERED: PANTOPRAZOLE 40 MG/10 ML VIAL IVP SCH (12:45)
[2020-10-01 13:48] VITALS: BP 159/74; PULSE 68; TEMP 97.6
[2020-10-01] MEDS ORDERED: LACOSAMIDE 50 MG TABLET PO SCH (14:00)
--- NOTE | 2020-10-01 14:07 | P.CNNES ---
History of Present Illness Consult date: 10/01/20 Requesting physician: Sharona Bautista Reason for Consult: Seizure left-sided weakness History of Present Illness: Patient is a 60-year-old right-handed male with a diagnosis of glioblastoma multiforme, came to the hospital by ambulance yesterday at 6:37 PM, for left- sided weakness. Patient's was present, who gave a very good history. Patient was diagnosed with GBM, after he developed mental confusion January 2019, which prompted brain imaging, which revealed a tumor in the right hemispheric region. Patient underwent craniotomy on 02/19/2019, then a month later was followed by the 42 days of chemotherapy and a 6 weeks of radiation given both simultaneously. Patient's first grand mal seizure occurred in June 2019. He was placed on Keppra. Patient had a second seizure in January 2020 and the third seizure was assignment manager yesterday at 12:45 AM. He also has some partial seizures as well in between in which he has staring spells. Those last for a few minutes. Patient's states that after he had a seizure, assignment manager yesterday, he developed weakness of the left side. Yesterday he could not walk even with assistance, although at baseline he has slight weakness on the left side but still could walk. Therefore patient's called the ambulance, and was brought to the hospital. Vital signs on arrival blood pressure 119/66, pulse rate 78, temperature 97.6. CT head showed no acute intracranial abnormality. Interval resolution of previous right frontal subdural collection. Stable right frontal lobe encephalomalacia. CTA of head and neck showed no acute abnormality of the CTA head and neck. Mild to moderate left and mild right proximal ICA stenosis. Chest x-ray shows no acute process. EKG with normal sinus rhythm. CBC is normal PT/PTT normal, Chem-7 normal. AST is normal 55, ALT mildly elevated 55. Troponin negative. Martino virus PCR negative. Patient had an MRI of the brain performed recently on 09/02/2020, which revealed redemonstrated right frontal craniotomy flap. Underlying resection cavity with a chronic dural thickening. Lobulated enhancing mass within the right frontal resection cavity measuring relatively similar at 3.8 x 3.3 x 2.5 cm (versus 3.5 x 3.3 x 2.1 cm on 08/08/2020). Irregular enhancement along the inferior margin of the resection cavity is unchanged. Associated surrounding T2 bright white matter changes similar compared to 08/08/2020. He is scheduled for a follow-up MRI of the brain in early October 2020. Patient's states that after his chemo and radiation, patient is getting some chemotherapy called 11/15, which he continued until February 2020. Thereafter he has been getting infusions of Zirabev (Avastin) for his . Patient is currently on Keppra 750 mg twice a day. Patient's states that it makes him somewhat mean. Review of Systems Patient has some problem with the vision, left-sided weakness, balance issues, weakness. Denies double vision denies any hoarseness or throat. Denies abdominal pain nausea vomiting. All other review of systems unremarkable. Patient has normal locked of memory, but has very severely affected short-term memory. Patient has left frozen shoulder. Past Medical History Past Medical History: Cancer, GERD/Reflux, Hypertension Additional Past Medical History / Comment(s): Recent brain surgery for glioblastoma and has gait dysfunction since surgery, herpes simplex one. History of Any Multi-Drug Resistant Organisms: None Reported Past Surgical History: Orthopedic Surgery Additional Past Surgical History / Comment(s): 02/19/19 craniotomy with brain tumor resection, rt rotator cuff repair, tendon repair lt arm, colonoscopy. Past Anesthesia/Blood Transfusion Reactions: No Reported Reaction Past Psychological History: Anxiety, Depression Additional Psychological History / Comment(s): Pt resides with his spouse. He uses a cane to ambulate. He has not driven since brain surgery/spouse drives. He is receiving home care thru [facility]. Smoking Status: Never smoker Past Alcohol Use History: None Reported Past Drug Use History: None Reported - Past Family History Mother Family Medical History: No Reported History Additional Family Medical History / Comment(s): Father is healthy Medications and Allergies Home Medications Medication Instructions Recorded Confirmed Type levETIRAcetam 500 mg PO BID@1030,202903/22/19 09/30/20 History lisinopriL [Zestril] 5 mg PO DAILY@1030 04/07/19 09/30/20 History Citalopram Hydrobromide [CeleXA] 20 mg PO DAILY@1030 07/23/19 09/30/20 History Allergies Allergy/AdvReac Type Severity Reaction Status Date / Time No Known Allergies Allergy Verified 09/30/20 23:32 Physical Examination - Vital Signs Vital Signs: Vital Signs Temp Pulse Resp BP Pulse Ox 10/01/20 02:00 20 10/01/20 01:08 58 L 20 155/81 95 09/30/20 22:40 58 L 18 134/94 98 09/30/20 21:17 97.6 F 59 L 20 119/66 95 09/30/20 20:15 78 18 119/66 95 09/30/20 18:46 97.8 F 74 16 116/78 97 Intake and Output 09/30/20 10/01/20 10/01/20 22:59 06:59 14:59 Intake Total 0 Output Total 350 Balance -350 0 Intake: Oral 0 Output: Urine 350 Other: # Voids 0 # Bowel Movements 0 Weight 81.647 kg 79 kg On examination patient is a late middle aged male, appears somewhat younger than his stated age. He is alert and awake in no distress. Patient states it's January in the year is 21. He knows that he is in [place] in [place], but thinks he is in a hotel rather than a hospital. Speech and language function appears normal but he is slightly delayed and decreased comprehension for performing any task. On cranial exam showed pupils are round and reactive to light, visual singh reveal left one was hemianopia. He has mild left facial asymmetry and tongue protrudes the midline. The evaluation is normal, hearing is slightly decreased, shoulder shrug normal. On muscle strength testing patient has normal strength on the right side. On the left side his deltoid is 1 to 2, biceps 4, triceps 4, jet engine mechanic 4. Hip flexion is 4-, ankle dorsiflexion 4+5-. Patient is obviously spastic on the left side. Reflexes are brisk on the left and he has Babinski only on the left side. Sensory to touch is equal with no neglect. No ataxia for [id number] on the right, cannot perform on the left. Gait was deferred. Results - Laboratory Findings CBC and BMP: 09/30/20 19:55 09/30/20 19:55 Abnormal Lab Findings: Abnormal Labs 09/30/20 19:55 BUN 21 H Total Bilirubin 1.6 H ALT 55 H Assessment and Plan Assessment: * 60-year-old male with history of glioblastoma multiforme, brought in the hospital with breakthrough seizure with subsequent increased weakness on the left side, possible post ictal Jamil's paralysis. Progression of tumor is also a possibility. * Glioblastoma multiforme * Hypertension Plan: * Patient is currently on Keppra 750 mg twice a day. Patient's believes that it makes him very mean. We will now add another agent Vimpat 100 mg twice a day to control his seizures. * Patient is already scheduled for another MRI of the brain through his [facility] gist. * PT OT. * Neurologically clear for discharge, if cleared by PT and OT.
--- NOTE | 2020-10-01 14:16 | EEG ---
ELECTROENCEPHALOGRAM REPORT DATE OF SERVICE: 10/01/2020 PREAMBLE: This is a 60-year-old male with history of glioblastoma multiforme, who came with a breakthrough seizure. This study is performed to evaluate for any epileptiform activity. EEG FINDINGS: This is a 21 channel routine EEG recording in a patient utilizing 10/20 international system with referential and bipolar montages. Background consists of a well-developed and moderately well regulated, mixed frequencies of 8-9 hertz alpha with some theta activity seen relatively better in the left hemispheric area. There is amplitude asymmetry with relatively higher amplitude activity in the right hemispheric region related to previous craniotomy. Some sharp appearing waves were seen in the right frontal region. Photic driving response was seen with some flash frequencies. Different stages of sleep were not seen. EKG channel showed no arrhythmia. IMPRESSION: This is an abnormal EEG due: 1. Amplitude asymmetry with relatively higher amplitude activity in the right hemispheric region consistent with breach rhythm from previous craniotomy defect. 2. Some intermittent sharp waves seen in the right frontal regions, suggestive of underlying cortical irritability and tendency for seizures. 3. Mild background slowing consistent with mild encephalopathy or medication effect. No electrographic seizure was recorded. MMODL / IJN: [id number] /
--- NOTE | 2020-10-02 13:03 | P.HPIM ---
History of Present Illness H&P Date: 10/01/20 Chief Complaint: Recurrent seizure activity, left-sided weakness History and Physical and Discharge Summary This is a pleasant 60-year-old gentleman with past medical history of glioblastoma, craniotomy 2018, status post chemotherapy and radiation, seizure disorder gastroesophageal reflux disease, hypertension, gait jdsnqoibjic-rlhi-zndiv weakness, anxiety, depression and multiple other medical issues,presented to the ER via EMS with recurrent seizure activity in the early a.m. with possibly increased left-sided weakness/difficulty walking. Last grandma seizure ,significant other, reported in January 2020 with some partial seizures since. Brain CT reported no acute intracranial abnormality, interval resolution of previous right frontal subdural collection, stable right frontal lobe encephalomalacia. CTA of head and neck reported no acute abnormality of the CTA head and neck, mild to moderate left and mild right proximal ICA stenosis. Chest x-ray reporting no acute process. EKG reported normal sinus rhythm. Troponin negative. Hematology, coagulation panels unremarkable. Chemistry panel unremarkable with the exceptions of BUN 21, total bili 1.6, ALT mildly elevated. Martino virus PCR negative. Vital signs stable, afebrile, maintaining O2 sats in the high 90s on room air. reports he has a follow-up brain MRI with oncology on November 03. Evaluated by neurology. Recent brain MRI 09/02/2020 reviewed by neurology. EEG ordered. Review of Systems ROS Statement: Those systems with pertinent positive or pertinent negative responses have been documented in the HPI. ROS Other: All systems not noted in ROS Statement are negative. Past Medical History Past Medical History: Cancer, GERD/Reflux, Hypertension Additional Past Medical History / Comment(s): Recent brain surgery for glio blastoma and has gait dysfunction since surgery, herpes simplex one. History of Any Multi-Drug Resistant Organisms: None Reported Past Surgical History: Orthopedic Surgery Additional Past Surgical History / Comment(s): 02/19/19 craniotomy with brain tumor resection, rt rotator cuff repair, tendon repair lt arm, colonoscopy. Past Anesthesia/Blood Transfusion Reactions: No Reported Reaction Past Psychological History: Anxiety, Depression Additional Psychological History / Comment(s): Pt resides with his spouse. He uses a cane to ambulate. He has not driven since brain surgery/spouse drives. He is receiving home care thru [facility]. Smoking Status: Never smoker Past Alcohol Use History: None Reported Past Drug Use History: None Reported - Past Family History Mother Family Medical History: No Reported History Additional Family Medical History / Comment(s): Father is healthy Medications and Allergies Home Medications Medication Instructions Recorded Confirmed Type lisinopriL [Zestril] 5 mg PO DAILY@1030 04/07/19 09/30/20 History Citalopram Hydrobromide [CeleXA] 20 mg PO DAILY@1030 07/23/19 09/30/20 History Lacosamide [Vimpat] 100 mg PO BID 3 Days #6 tab 10/01/20 Rx levETIRAcetam [Keppra] 750 mg PO BID@1030,2030 tab 10/01/20 Rx Allergies Allergy/AdvReac Type Severity Reaction Status Date / Time No Known Allergies Allergy Verified 09/30/20 23:32 Physical Exam Vitals: Vital Signs Temp Pulse Pulse Resp BP BP Pulse Ox 10/01/20 12:00 97.6 F 68 18 159/74 98 10/01/20 08:00 98.1 F 73 18 169/73 97 10/01/20 02:00 20 10/01/20 01:08 58 L 20 155/81 95 09/30/20 22:40 58 L 18 134/94 98 09/30/20 21:17 97.6 F 59 L 20 119/66 95 09/30/20 20:15 78 18 119/66 95 09/30/20 18:46 97.8 F 74 16 116/78 97 Intake and Output 10/01/20 10/01/20 10/01/20 06:59 14:59 22:59 Intake Total 0 Output Total 350 Balance -350 0 Intake: Oral 0 Output: Urine 350 Other: # Voids 0 # Bowel Movements 0 Weight 79 kg PHYSICAL EXAM: VITAL SIGNS: As above GENERAL: Sitting up in chair, no acute distress , disoriented to month and place, reports he is in a [facility]. HEENT: Left hemianopia,Conjunctivae normal. eyes normal. Minimal left facial symmetry, tongue midline. NECK: No JVD. No thyroid enlargement. No LNs CARDIOVASCULAR: S1, S2 regular. No murmur RESPIRATION: Breath sounds diminished in the bases. No rhonchi or crackles. No bronchial breathing. ABDOMEN: Soft, nontender . No guarding. no masses palpable. No ascites, No hepatosplenomegaly.Bowel sounds heard. LEGS: No edema. no swelling PSYCHIATRY: Alert and oriented X2, mood and affect normal. NERVOUS SYSTEM: Cranial N 2-12 grossly normal. Speech fluent, delayed comprehension .Moves all 4 limbs. Diffuse weakness No focal deficits. Strength and sensation grossly intact with the exception of left frozen shoulder and chronic left-sided residual weakness, 4 out of 5. Skin: Warm and dry, no rash Results CBC & Chem 7: 09/30/20 19:55 09/30/20 19:55 Labs: Abnormal Lab Results - Last 24 Hours (Table) 09/30/20 Range/Units 19:55 BUN 21 H (9-20) mg/dL Total Bilirubin 1.6 H (0.2-1.3) mg/dL ALT 55 H (4-49) U/L Thrombosis Risk Factor Assmnt - Choose All That Apply Any of the Below Risk Factors Present?: No Other Risk Factors: No Thrombosis Risk Factor Assessment Level: Very Low Risk Assessment and Plan Assessment: Glioblastoma multiforme, chronic with breakthrough seizure, resulting with increase in left-sided weakness. Possible tumor progression-scheduled for follow-up brain MRI on November 03 with oncology. Hypertension Anxiety Depression Plan: Continue on current medication regime ,monitoring and symptomatic treatment. Patient has just returned from EEG. Significant other reports patient has a follow-up brain MRI on November 03 with oncology. Vimpat Added to anticonvulsant regimen, along with Keppra. No seizure activity. Evaluated by PT recommending home with home care.Cleared by neurology for discharge. Patient will be discharged home today in a stable condition with guarded prognosis. Discharge Medication List lisinopriL [Zestril] 5 mg PO DAILY@1030 04/07/19 [History] Citalopram Hydrobromide [CeleXA] 20 mg PO DAILY@1030 07/23/19 [History] Lacosamide [Vimpat] 100 mg PO BID 3 Days #6 tab 10/01/20 [Rx] levETIRAcetam [Keppra] 750 mg PO BID@1030,2029 tab 10/01/20 [Rx] The impression and plan of care has been dictated as directed. : I performed a history and examination of this patient, discussed the same with the dictator. I agree with the dictator's note ,documented as a scribe. Any additional findings or plans will be noted.
== END 2020-10-01 15:55 | disposition home or self-care (01) ==
LOC: EC 18:37 → INTOOBSV 22:38 → 3SCARD 22:38 → UNDODISIN 10-01 15:55
PROVIDERS: ADMIT Family Medicine; ATTEND Family Medicine
DX: G40.409 Other generalized epilepsy and epileptic syndromes, not intractable, without status epilepticus (principal); G81.94 Hemiplegia, unspecified affecting left nondominant side; I10 Essential (primary) hypertension; I65.23 Occlusion and stenosis of bilateral carotid arteries; R94.01 Abnormal electroencephalogram [EEG]; G93.89 Other specified disorders of brain; F41.9 Anxiety disorder, unspecified; F32.9 Major depressive disorder, single episode, unspecified; K21.9 Gastro-esophageal reflux disease without esophagitis; B00.9 Herpesviral infection, unspecified; Z20.822 Contact with and (suspected) exposure to COVID-19; Z79.899 Other long term (current) drug therapy; Z85.841 Personal history of malignant neoplasm of brain; Z98.890 Other specified postprocedural states; Z92.21 Personal history of antineoplastic chemotherapy; Z92.3 Personal history of irradiation
CPT/HCPCS: 96374; 99285; 36415; 95816; 93005; 97162; 97166; 80053; 84484; 85025; 85610; 85730; 87635; 71046; 70496; 70450; 70498; G0378 ×2; C9113; Q9967

== ENCOUNTER 2020-10-12 14:21 | Observation (INO) | payer BC ==
[2020-10-12] MEDS ORDERED: SODIUM CHLORIDE 0.9% 1,000 ML IV STA (18:01)
--- NOTE | 2020-10-12 18:08 | ED ---
General Adult HPI - General Chief complaint: Weakness Stated complaint: Trouble walking Time Seen by Provider: 10/12/20 17:40 Source: patient, RN notes reviewed, old records reviewed Mode of arrival: wheelchair Limitations: no limitations - History of Present Illness Initial comments: This is a 60-year-old male who is being treated for glioblastoma. Patient had a craniotomy in January 2019. Patient comes in today because he was weaker when he tried to walk and it was difficult for him to walk. states she could not give him enough assistance this morning to walk but they didn't go get their treatment at the oncologist office. Patient was able to get up with assistance to the bathroom while he was waiting in the emergency department which the states his improvement. She has not noticed increased weakness on either side but notices general weakness today. Patient has had no recent fever or chills patient denies any chest pain difficulty breathing shortness of breath per patient denies any abdominal pain patient denies nausea vomiting or diarrhea. Patient denies lightheadedness or dizziness. Patient denies dysuria hematuria urinary frequency. - Related Data Home Medications Medication Instructions Recorded Confirmed lisinopriL [Zestril] 5 mg PO DAILY@1030 04/07/19 10/12/20 Citalopram Hydrobromide [CeleXA] 20 mg PO DAILY@1030 07/23/19 10/12/20 Melatonin 10 mg PO HS@2230 10/12/20 10/12/20 levETIRAcetam [Keppra] 750 mg PO BID@1030,2230 10/12/20 10/12/20 Allergies Allergy/AdvReac Type Severity Reaction Status Date / Time No Known Allergies Allergy Verified 10/12/20 19:03 Review of Systems ROS Statement: Those systems with pertinent positive or pertinent negative responses have been documented in the HPI. ROS Other: All systems not noted in ROS Statement are negative. Past Medical History Past Medical History: Cancer, GERD/Reflux, Hypertension Additional Past Medical History / Comment(s): Recent brain surgery for glioblastoma and has gait dysfunction since surgery, herpes simplex one. Currently getting immunotherapy History of Any Multi-Drug Resistant Organisms: None Reported Past Surgical History: Orthopedic Surgery Additional Past Surgical History / Comment(s): 02/19/19 craniotomy with brain tumor resection, rt rotator cuff repair, tendon repair lt arm, colonoscopy. Past Anesthesia/Blood Transfusion Reactions: No Reported Reaction Past Psychological History: Anxiety, Depression Smoking Status: Never smoker Past Alcohol Use History: None Reported Past Drug Use History: None Reported - Past Family History Mother Family Medical History: No Reported History Additional Family Medical History / Comment(s): Father is healthy General Exam - General Exam Comments Initial Comments: GENERAL: Patient is well-developed and well-nourished. Patient is nontoxic and well- hydrated and is in mild distress. ENT: Neck is soft and supple. No significant lymphadenopathy is noted. Oropharynx is clear. Moist mucous membranes. Neck has full range of motion without eliciting any pain. EYES: The sclera were anicteric and conjunctiva were pink and moist. Extraocular movements were intact and pupils were equal round and reactive to light. Eyelid s were unremarkable. PULMONARY: Unlabored respirations. Good breath sounds bilaterally. No audible rales rhonchi or wheezing was noted. CARDIOVASCULAR: There is a regular rate and rhythm without any murmurs gallops or rubs. ABDOMEN: Soft and nontender with normal bowel sounds. No palpable organomegaly was noted. There is no palpable pulsatile mass. SKIN: Skin is clear with no lesions or rashes and otherwise unremarkable. NEUROLOGIC: Patient is alert and oriented x3. Cranial nerves II through XII are grossly intact. Patient has 2-5 design maker on the left when compared to the right and dorsi and plantar flexion are 45 when compared to the right. Normal speech, volume and content. Symmetrical smile. MUSCULOSKELETAL: Normal extremities with adequate strength and full range of motion. LYMPHATICS: No significant lymphadenopathy is noted PSYCHIATRIC: Patient is not suicidal or homicidal Limitations: no limitations Course Vital Signs 10/12/20 15:14 Temperature 98.1 F Pulse Rate 92 Respiratory 18 Rate Blood Pressure 127/87 O2 Sat by Pulse 97 Oximetry Medical Decision Making - Medical Decision Making EKG shows normal sinus rhythm at 66 bpm WA interval 280 QRSs 84 QT interval 398 QTC is 417. Patient's EKG shows no ST segment elevation or depression. Computed tomography scan shows no increased edema in no acute changes. New. Chest x-ray shows no acute changes. - Lab Data Result diagrams: 10/12/20 18:12 10/12/20 18:12 Lab Results 10/12/20 10/12/20 10/12/20 Range/Units 18:12 18:12 18:12 WBC 7.7 (3.8-10.6) k/uL RBC 5.86 (4.30-5.90) m/uL Hgb 18.0 H (13.0-17.5) gm/dL Hct 52.5 (39.0-53.0) % MCV 89.5 (80.0-100.0) fL MCH 30.7 (25.0-35.0) pg MCHC 34.3 (31.0-37.0) g/dL RDW 12.8 (11.5-15.5) % Plt Count 260 (150-450) k/uL MPV 6.8 Neutrophils % 63 % Lymphocytes % 24 % Monocytes % 7 % Eosinophils % 2 % Basophils % 1 % Neutrophils # 4.8 (1.3-7.7) k/uL Lymphocytes # 1.9 (1.0-4.8) k/uL Monocytes # 0.5 (0-1.0) k/uL Eosinophils # 0.2 (0-0.7) k/uL Basophils # 0.0 (0-0.2) k/uL PT 10.1 (9.0-12.0) sec INR 0.9 (<1.2) APTT 23.0 (22.0-30.0) sec Sodium 139 (137-145) mmol/L Potassium 4.9 (3.5-5.1) mmol/L Chloride 102 (98-107) mmol/L Carbon Dioxide 24 (22-30) mmol/L Anion Gap 13 mmol/L BUN 19 (9-20) mg/dL Creatinine 0.67 (0.66-1.25) mg/dL Est GFR (CKD-EPI)AfAm >90 (>60 ml/min/1.73 sqM) Est GFR (CKD-EPI)NonAf >90 (>60 ml/min/1.73 sqM) Glucose 96 (74-99) mg/dL Calcium 10.5 H (8.4-10.2) mg/dL Total Bilirubin 1.9 H (0.2-1.3) mg/dL AST 73 H (17-59) U/L ALT 70 H (4-49) U/L Alkaline Phosphatase 87 (38-126) U/L Troponin I (0.000-0.034) ng/mL Total Protein 8.4 H (6.3-8.2) g/dL Albumin 5.0 (3.5-5.0) g/dL 10/12/20 Range/Units 18:12 WBC (3.8-10.6) k/uL RBC (4.30-5.90) m/uL Hgb (13.0-17.5) gm/dL Hct (39.0-53.0) % MCV (80.0-100.0) fL MCH (25.0-35.0) pg MCHC (31.0-37.0) g/dL RDW (11.5-15.5) % Plt Count (150-450) k/uL MPV Neutrophils % % Lymphocytes % % Monocytes % % Eosinophils % % Basophils % % Neutrophils # (1.3-7.7) k/uL Lymphocytes # (1.0-4.8) k/uL Monocytes # (0-1.0) k/uL Eosinophils # (0-0.7) k/uL Basophils # (0-0.2) k/uL PT (9.0-12.0) sec INR (<1.2) APTT (22.0-30.0) sec Sodium (137-145) mmol/L Potassium (3.5-5.1) mmol/L Chloride (98-107) mmol/L Carbon Dioxide (22-30) mmol/L Anion Gap mmol/L BUN (9-20) mg/dL Creatinine (0.66-1.25) mg/dL Est GFR (CKD-EPI)AfAm (>60 ml/min/1.73 sqM) Est GFR (CKD-EPI)NonAf (>60 ml/min/1.73 sqM) Glucose (74-99) mg/dL Calcium (8.4-10.2) mg/dL Total Bilirubin (0.2-1.3) mg/dL AST (17-59) U/L ALT (4-49) U/L Alkaline Phosphatase (38-126) U/L Troponin I <0.012 (0.000-0.034) ng/mL Total Protein (6.3-8.2) g/dL Albumin (3.5-5.0) g/dL Disposition Clinical Impression: Inability to walk, Glioblastoma Disposition: ADMITTED IP TO THIS HOSP Referrals: Chetan Abdi MD [Primary Care Provider] - 1-2 days Time of Disposition: 20:45
[2020-10-12 18:20] LABS: Basophils % (A) 1 %; Eosinophils # (A) 0.2 k/uL (0-0.7); Eosinophils % (A) 2 %; HCT 52.5 % (39.0-53.0); Lymphocytes # (A) 1.9 k/uL (1.0-4.8); Lymphocytes % (A) 24 %; MCH 30.7 pg (25.0-35.0); MCHC 34.3 g/dL (31.0-37.0); MCV 89.5 fL (80.0-100.0); Mean Platelet Volume 6.8; Monocytes # (A) 0.5 k/uL (0-1.0); Monocytes % (A) 7 %; Neutrophils # (A) 4.8 k/uL (1.3-7.7); Neutrophils % (A) 63 %; Platelet Count 260 k/uL (150-450); RBC 5.86 m/uL (4.30-5.90); RDW 12.8 % (11.5-15.5); WBC 7.7 k/uL (3.8-10.6)
[2020-10-12 18:28] LABS: ALT 70 U/L (4-49); AST 73 U/L (17-59); African American GFR (CKD) >90 (>60 ml/min/1.73 sqM); Alkaline Phosphatase 87 U/L (38-126); Anion Gap 13 mmol/L; Blood Urea Nitrogen 19 mg/dL (9-20); Calcium 10.5 mg/dL (8.4-10.2); Carbon Dioxide 24 mmol/L (22-30); Chloride 102 mmol/L (98-107); Glucose 96 mg/dL (74-99); Non-African American GFR(CKD) >90 (>60 ml/min/1.73 sqM); Potassium 4.9 mmol/L (3.5-5.1); Sodium 139 mmol/L (137-145); Total Bilirubin 1.9 mg/dL (0.2-1.3); Total Protein 8.4 g/dL (6.3-8.2)
[2020-10-12 18:44] LABS: INR 0.9 (<1.2); Prothrombin Time 10.1 sec (9.0-12.0)
--- NOTE | 2020-10-12 19:26 | XR ---
EXAMINATION TYPE: XR chest 2V DATE OF EXAM: 10/12/2020 CLINICAL HISTORY: altered mental status. Left-sided weakness. TECHNIQUE: Frontal and lateral view of the chest. COMPARISON: 09/30/2020 chest radiograph FINDINGS: Redemonstrated elevation of the right hemidiaphragm. The cardiomediastinal silhouette is w ithin normal limits for size. Pulmonary vasculature is normal. There is no focal air space opacity, p leural effusion, or pneumothorax seen. Old fracture deformity of the left clavicle. IMPRESSION: No acute cardiopulmonary process.
--- NOTE | 2020-10-12 19:36 | CT ---
EXAMINATION TYPE: CT brain wo con DATE OF EXAM: 10/12/2020 HISTORY: ams, confusion. CT DLP: 1159.4 mGycm. Automated Exposure Control for Dose Reduction was Utilized. TECHNIQUE: CT scan of the head is performed without contrast. COMPARISON: 09/30/2020 CT brain, MRI brain 09/02/2020 FINDINGS: There is no acute intracranial hemorrhage, midline shift, or mass effect identified. There is redemon strated right frontal lobe hypodensity and resection cavity with overlying postsurgical changes of th e skull. The ventricles, sulci, and cisterns are unchanged in size and configuration. No new acute extra-axial fluid collection. No acute depressed calvarial fracture. Visualized sinuses and mastoid air cells are clear. IMPRESSION: 1. Right frontal resection cavity. The mass within the resection cavity is better appreciated on 09/02 contrast-enhanced MRI comparison. The associated edema is similar to 09/30/2020 CT brain. 2. No new acute intracranial hemorrhage or mass effect.
[2020-10-12] MEDS ORDERED: SODIUM CHLORIDE 0.9% 1,000 ML IV ONE (20:46)
[2020-10-12] MEDS ORDERED: MELATONIN 5 MG TABLET PO SCH (22:30)
[2020-10-12] MEDS: levETIRAcetam 250 MG TAB PO SCH (22:35)
[2020-10-13 00:14] LABS: Appearance,Urine Clear (Clear); Bilirubin,Urine Negative (Negative); Blood,Urine Negative (Negative); Color,Urine Yellow; Glucose,Urine (UA) Negative (Negative); Ketones,Urine 1+ (Negative); Leukocyte Esterase,Urine Negative (Negative); Nitrite,Urine Negative (Negative); Protein,Urine Trace (Negative); Specific Gravity,Urine 1.029 (1.001-1.035); Urobilinogen,Urine <2.0 mg/dL (<2.0)
[2020-10-13 03:07] VITALS: TEMP 98.5
[2020-10-13] MEDS ORDERED: CITALOPRAM HYDROBROMIDE 20 MG TAB PO SCH (09:00)
[2020-10-13] MEDS: levETIRAcetam 250 MG TAB PO SCH (09:03)
[2020-10-13] MEDS: lisinopriL 5 MG TAB PO SCH ×2 (09:04→11:52)
[2020-10-13 09:14] VITALS: BP 110/73; PULSE 53; RESP 18
--- NOTE | 2020-10-13 14:08 | P.HPIM ---
History of Present Illness H&P Date: 10/13/20 Chief Complaint: Increased weakness History and Physical and Discharge Summary This is a pleasant 60-year-old gentleman with past medical history of glioblastoma, craniotomy 2018, status post chemotherapy and radiation, seizure disorder gastroesophageal reflux disease, hypertension, gait jjyxmevdvzn-opir-frdwz weakness, anxiety, depression and multiple other medical issues,presented to the ER with increased generalized weakness. Patient had been at Dr. Jones'zacarias yesterday for infusion and nurse directed patient's to bring him to the ER as felt patient was generalized weaker, denied seizure activity. Patient has chronic left-sided weakness, at baseline. ER staff reports patient has been up walking with walker, tolerating exertion well. Vital signs stable, getting O2 sats of high 90s on room air. Currently afebrile, No fever or chills or congestion. Denies chest pain, palpitations or shortness of breath. Denies lightheadedness dizziness. Denies nausea vomiting or diarrhea. Denies abdominal pain. Chest x-ray reporting no acute cardiopulmonary process. Brain CT reporting right frontal resection cavity, mass within the resection cavity better appreciated on 09/02/2020 contrast enhanced MRI comparison. Associated edema similar to 09/30/2020 CT, no new acute intracranial hemorrhage or mass effect. EKG reported normal sinus rhythm. Hematology, coagulation, chemistry panel is unremarkable with the exception of hemoglobin 18, calcium 10.5, total bili 1.9, AST 73, ALT 70. Troponin negative 1. UA negative. Coronavirus not detected. Review of Systems ROS Statement: Those systems with pertinent positive or pertinent negative responses have been documented in the HPI. ROS Other: All systems not noted in ROS Statement are negative. Past Medical History Past Medical History: Cancer, GERD/Reflux, Hypertension Additional Past Medical History / Comment(s): Recent brain surgery for glioblastoma and has gait dysfunction since surgery, herpes simplex one. Currently getting immunotherapy History of Any Multi-Drug Resistant Organisms: None Reported Past Surgical History: Orthopedic Surgery Additional Past Surgical History / Comment(s): 02/19/19 craniotomy with brain tumor resection, rt rotator cuff repair, tendon repair lt arm, colonoscopy. Past Anesthesia/Blood Transfusion Reactions: No Reported Reaction Past Psychological History: Anxiety, Depression Smoking Status: Never smoker Past Alcohol Use History: None Reported Past Drug Use History: None Reported - Past Family History Mother Family Medical History: No Reported History Additional Family Medical History / Comment(s): Father is healthy Medications and Allergies Home Medications Medication Instructions Recorded Confirmed Type lisinopriL [Zestril] 5 mg PO DAILY@1030 04/07/19 10/12/20 History Citalopram Hydrobromide [CeleXA] 20 mg PO DAILY@1030 07/23/19 10/12/20 History Melatonin 10 mg PO HS@2230 10/12/20 10/12/20 History levETIRAcetam [Keppra] 750 mg PO BID@1030,2230 10/12/20 10/12/20 History Dexamethasone [Decadron] 6 mg PO DAILY #6 tablet 10/13/20 Rx Famotidine [Pepcid] 20 mg PO BID #60 tablet 10/13/20 Rx Allergies Allergy/AdvReac Type Severity Reaction Status Date / Time No Known Allergies Allergy Verified 10/12/20 19:03 Physical Exam Vitals: Vital Signs Temp Pulse Resp BP Pulse Ox 10/13/20 08:00 53 L 18 110/73 98 10/13/20 06:46 58 L 16 144/87 100 10/13/20 05:00 16 10/13/20 04:00 62 16 118/62 99 10/13/20 03:07 69 16 126/71 10/12/20 23:00 98.5 F 70 17 125/74 98 10/12/20 22:00 16 10/12/20 20:00 16 10/12/20 15:14 98.1 F 92 18 127/87 97 Intake and Output 10/12/20 10/13/20 10/13/20 22:59 06:59 14:59 Other: Weight 83.007 kg PHYSICAL EXAM: VITAL SIGNS: As above GENERAL: Sitting up in stretcher, no acute distress , alert and oriented 3. HEENT: Left hemianopia,Conjunctivae normal. eyes normal. Minimal left facial s ymmetry, tongue midline. NECK: No JVD. No thyroid enlargement. No LNs CARDIOVASCULAR: S1, S2 regular. No murmur RESPIRATION: Breath sounds diminished in the bases. No rhonchi or crackles. No bronchial breathing. ABDOMEN: Soft, nontender . No guarding. no masses palpable. No ascites, No hepatosplenomegaly.Bowel sounds heard. LEGS: No edema. no swelling PSYCHIATRY: Alert and oriented X2, mood and affect normal. NERVOUS SYSTEM: Cranial N 2-12 grossly normal. Speech fluent, delayed comprehension .Moves all 4 limbs. Diffuse weakness No focal deficits. Strength and sensation grossly intact with the exception of left frozen shoulder and chronic left-sided residual weakness, 4 out of 5. Skin: Warm and dry, no rash Results CBC & Chem 7: 10/12/20 18:12 10/12/20 18:12 Labs: Abnormal Lab Results - Last 24 Hours (Table) 10/12/20 10/12/20 10/12/20 Range/Units 18:12 18:12 23:38 Hgb 18.0 H (13.0-17.5) gm/dL Calcium 10.5 H (8.4-10.2) mg/dL Total Bilirubin 1.9 H (0.2-1.3) mg/dL AST 73 H (17-59) U/L ALT 70 H (4-49) U/L Total Protein 8.4 H (6.3-8.2) g/dL Urine Protein Trace H (Negative) Urine Ketones 1+ H (Negative) Assessment and Plan Assessment: Glioblastoma multiforme, chronic with fluctuating increased weakness. Possible tumor progression-scheduled for follow-up brain MRI on November 03 with oncology. Hypertension Anxiety Depression Plan: Continue on current medication regime ,monitoring and symptomatic treatment. Patient ambulating without difficulty, discussed poor prognosis with both and patient regarding glioblastoma including palliative care, hospice, as well as subacute rehab. encouraged to bring patient into PCP's office anytime, she has concerns with worsening in patients condition. Patient will be discharged home today in stable condition with guarded prognosis. Discussed with neurology and will also send patient on Decadron 6 mg daily for 6 days. The impression and plan of care has been dictated as directed. : I performed a history and examination of this patient, discussed the same with the dictator. I agree with the dictator's note ,documented as a scribe. Any additional findings or plans will be noted.
== END 2020-10-13 13:54 | disposition home or self-care (01) ==
LOC: EC 14:21 → 5NMEDONC 20:46
PROVIDERS: ADMIT Family Medicine; ATTEND Family Medicine
DX: R53.1 Weakness (principal); R26.2 Difficulty in walking, not elsewhere classified; Z85.841 Personal history of malignant neoplasm of brain; I10 Essential (primary) hypertension; K21.9 Gastro-esophageal reflux disease without esophagitis; F32.9 Major depressive disorder, single episode, unspecified; F41.9 Anxiety disorder, unspecified; B00.9 Herpesviral infection, unspecified; G40.909 Epilepsy, unspecified, not intractable, without status epilepticus; Z20.822 Contact with and (suspected) exposure to COVID-19; Z98.890 Other specified postprocedural states; Z92.21 Personal history of antineoplastic chemotherapy; Z92.3 Personal history of irradiation; Z79.899 Other long term (current) drug therapy; Z79.52 Long term (current) use of systemic steroids
CPT/HCPCS: 99285; 36415; 93005; 80053; 84484; 85025; 85610; 85730; 81003; 87635; 71046; 70450; G0378 ×2

== ENCOUNTER → 2020-11-03 | Outpatient (CLI) | payer BC ==
--- NOTE | 2020-11-03 14:50 | MR ---
EXAMINATION TYPE: MR brain wo/w con DATE OF EXAM: 11/03/2020 COMPARISON: 09/02/2020, 08/08/2020 HISTORY: Follow up, malignant neoplasm of frontal lobe stage 4, left side weakness, confusion, cognit marnie issues, resection surgery 02-19-19. CONTRAST: Performed utilizing 8.5 mL intravenous Gadavist gadolinium contrast. TECHNIQUE: Multiplanar, multiecho imaging on a 3.0 Alondra magnet is performed through the brain. Stud y is performed within 24 hours of arrival to the hospital. The craniovertebral junction is normal. The pituitary is normal. Diffusion-weighted imaging is performed. There is stable punctate hyperintensity along the surgical bed right ventricle interface. White matter hyperintensity is present on inversion recovery weighted sequences. The hyperintensity of the cortex however appears diminished in relation to the prior study . There is some persistent hyperintensity within the anterior right brain stem and cerebral peduncle. There is a irregular heterogenous enhancing mass within the right frontal lobe near the vertex. Sercallie s 601 image 67. By measurement this currently measures 4.1 x 2.7 cm which is enlarged from the 3.3 x 2.5 cm. There are scattered punctate areas of hyperintensity on T2 and Inversion Recovery weighted sequences which are non-specific but can be related to microvascular ischemic changes. There is some sulcal effacement adjacent to the edema in the right frontal lobe. Ventricles and sulci are otherwise appropriate for the patient age. IMPRESSIONS: 1. Enlarging heterogenous enhancing right frontal lobe mass. Vasogenic edema remains present with dim inished edema within the cortex.
== END | disposition home or self-care (01) ==
LOC: RADMRIMAIN 12:05
PROVIDERS: ATTEND Radiology Radiation Oncology
DX: Z08 Encounter for follow-up examination after completed treatment for malignant neoplasm (principal); G93.6 Cerebral edema
CPT/HCPCS: 70553; A9585